=== PATIENT | female | born 1950 | race Caucasian/White ===

== ENCOUNTER → 2016-11-30 | Outpatient (REF) | payer MEDICARE, OTHER ==
[~2016-11-30] MED LIST: /CELE20CA; BONIVA PO; CALCIUM PO; HYDR25TA6 PO; IBUP600T; LIPI10TA PO; RYZOLT; RYZOLT PO; TRAM50TA2 OR; VICO5TAB; VITAMI PO; VITAMIN D50000 UNT PO
[2016-11-30 13:46] LABS: ALBUMIN 3.9 GM/DL (3.2-5.2); ALKALINE PHOSPHATASE 79 U/L (45-117); ALT/SGPT 33 U/L (12-78); ANION GAP 6 MEQ/L (8-16); AST/SGOT 24 U/L (15-37); BILIRUBIN,TOTAL 0.5 MG/DL (0.2-1.0); BLOOD UREA NITROGEN 18 MG/DL (7-18); CALCIUM LEVEL 9.2 MG/DL (8.8-10.2); CARBON DIOXIDE LEVEL 31 MEQ/L (21-32); CHLORIDE LEVEL 103 MEQ/L (98-107); CHOLESTEROL LEVEL 160 MG/DL (<200); CREATININE FOR GFR 0.98 MG/DL (0.55-1.02); GLOMERULAR FILTRATION RATE > 60.0 (>45); GLUCOSE, FASTING 106 MG/DL (80-110); POTASSIUM SERUM 4.5 MEQ/L (3.5-5.1); SODIUM LEVEL 140 MEQ/L (136-145); TOTAL PROTEIN 6.9 GM/DL (6.4-8.2); TRIGLYCERIDES LEVEL 154 MG/DL (<150)
== END ==
LOC: M SFHCADAM 08:27
PROVIDERS: ATTEND Internal Medicine
DX: I10 Essential (primary) hypertension (principal); E78.00 Pure hypercholesterolemia, unspecified

== ENCOUNTER → 2017-02-11 | Outpatient (CLI) | payer MEDICARE, OTHER ==
[~2017-02-11] MED LIST changes: +ATOR1TAB19 PO; +LISINOPRIL-HCTZ PO
--- NOTE | 2017-02-12 09:04 | DEXA ---
AP SPINE L1 - L4 0.991 -1.6 0.0 LT FEMUR TOTAL 0.915 -0.7 0.6 RT FEMUR TOTAL 0.954 -0.4 0.9 TOTAL BODY TOTAL OTHER DUAL FEMUR FRAX* ASSESSMENT Risk factors: Not performed. 10 year probability of fracture Major osteoporotic fracture % Hip fracture % COMMENTS: There is low bone density of the spine and hips. The decreased density of the spine does represent a significant change. The increased density of the left hip does not represent a significant change. The increased density of the right hip does represent a significant change. The density of the spine has increased 4.9% since the initial exam on 2000. The spine density has decreased 8.8% since the most recent exam on 01/09/2011. The density of the left hip has increased 4.1% since the initial exam on 2000. The density of the left hip has increased 1.6% since the most recent exam on 05/2011. The density of the right hip has increased 5.3% since the initial exam on 2000. The density of the right hip has increased 3.2% since the most recent exam on . FOLLOW-UP: Recommendation for the next bone density exam: 2 years. KALEN
== END ==
LOC: M WHC 08:56
PROVIDERS: ATTEND Internal Medicine
DX: Z01.419 Encounter for gynecological examination (general) (routine) without abnormal findings (principal); Z12.31 Encounter for screening mammogram for malignant neoplasm of breast; M81.0 Age-related osteoporosis without current pathological fracture; Z78.0 Asymptomatic menopausal state; Z80.3 Family history of malignant neoplasm of breast; Z92.23 Personal history of estrogen therapy; Z12.12 Encounter for screening for malignant neoplasm of rectum
CPT/HCPCS: 77080; 82270; G0101; G0202

== ENCOUNTER → 2017-02-11 | Outpatient (CLI) | payer MEDICARE, OTHER ==
--- NOTE | 2017-02-11 10:33 | REPMRS ---
Patient History The patient states she had a clinical breast exam in 02/14 Patient is postmenopausal. Family history of prostate cancer in father at age 50 or over and breast cancer in daughter at age 36. Took estrogen for 8 years. Digital Woman Screen Mammo: February 11, 2017 - Exam #: [id number] Bilateral CC and MLO view(s) were taken. Technologist: Maude Mac, Technologist Prior study comparison: February 10, 2016, digital woman screen mammo performed at [facility]. February 09, 2015, digital woman screen mammo performed at [facility]. FINDINGS: There are scattered fibroglandular densities. There has been no change in the appearance of the mammogram from the prior studies. There is a mild amount of residual fibroglandular tissue which is fairly symmetric. There is no interval development of dominant mass, architectural distortion, or clustered microcalcification suggestive of malignancy. ASSESSMENT: BI-RADS/ACR category 1 mammogram. Negative. Recommendation Routine screening mammogram in 1 year (for women over age 40). This mammogram was interpreted with the aid of an FDA-approved computer-aided dectection system. Electronically Signed By: Se Gomez MD 02/11/17 [id number]
== END ==
LOC: M WHC 08:43
PROVIDERS: ATTEND Nurse Practitioner Family
DX: Z12.31 Encounter for screening mammogram for malignant neoplasm of breast (principal); Z78.0 Asymptomatic menopausal state; Z80.3 Family history of malignant neoplasm of breast; Z92.23 Personal history of estrogen therapy

== ENCOUNTER 2017-03-04 18:45 | Emergency (ER) | payer MEDICARE, OTHER ==
[~2017-03-04] VITALS: Ht 157.5 cm; Wt 72.7 kg
[~2017-03-04 18:45] MED LIST changes: -ATOR1TAB19 PO; -LISINOPRIL-HCTZ PO
[2017-03-04] MEDS ORDERED: LISINOPRIL-HCTZ PO (18:55)
[2017-03-04] MEDS ORDERED: ATOR1TAB19 PO (18:55)
[2017-03-04] MEDS ORDERED: LIDOCAINE 2% MDV 20 ML VIAL SC ONE (21:15)
[2017-03-04 21:45] VITALS: BP 159/89
--- NOTE | 2017-03-05 08:02 | REP ---
Clinical: Trauma. Laceration. Technique: AP, lateral views of the left hand. Findings: Osteopenia and diffuse arthritic degenerative changes are appreciated. No acute fracture or dislocation. No subcutaneous emphysema or radiodense foreign body. Impression: Osteopenia and degenerative changes. No acute fracture, subcutaneous emphysema or foreign body identified. Signed by Brandon Moreno MD 03/05/2017 07:53 A
== END 2017-03-04 21:53 | disposition home or self-care (01) ==
LOC: M ED 18:45
DX: S61.012A Laceration without foreign body of left thumb without damage to nail, initial encounter (principal); W25.XXXA Contact with sharp glass, initial encounter; Y92.099 Unspecified place in other non-institutional residence as the place of occurrence of the external cause; Y93.9 Activity, unspecified; Y99.9 Unspecified external cause status; E78.5 Hyperlipidemia, unspecified; I10 Essential (primary) hypertension; M85.842 Other specified disorders of bone density and structure, left hand; Z87.891 Personal history of nicotine dependence; Z79.899 Other long term (current) drug therapy

== ENCOUNTER → 2017-12-16 | Outpatient (REF) | payer MEDICARE, OTHER ==
[2017-12-16 12:45] LABS: HEMATOCRIT 40.4 % (36.0-47.0); HEMOGLOBIN 13.4 g/dl (12.0-15.5); MEAN CORPUSCULAR HEMOGLOBIN 29.1 pg (27.0-33.0); MEAN CORPUSCULAR HGB CONC 33.2 g/dl (32.0-36.5); MEAN CORPUSCULAR VOLUME 87.6 fl (80.0-96.0); PLATELET COUNT, AUTOMATED 219 10^3/uL (150-450); RED BLOOD COUNT 4.61 10^6/uL (4.00-5.40); RED CELL DISTRIBUTION WIDTH 13.1 % (11.5-14.5); WHITE BLOOD COUNT 6.5 10^3/uL (4.0-10.0)
[2017-12-16 13:04] LABS: TOTAL 25(OH) VITAMIN D 37.7 NG/ML (30.0-100.0)
[2017-12-16 13:30] LABS: ALBUMIN 3.6 GM/DL (3.2-5.2); ALBUMIN/GLOBULIN RATIO 1.16 (1.00-1.93); ALKALINE PHOSPHATASE 88 U/L (45-117); ALT/SGPT 32 U/L (12-78); ANION GAP 9 MEQ/L (8-16); AST/SGOT 20 U/L (7-37); BILIRUBIN,TOTAL 0.5 MG/DL (0.2-1.0); BLOOD UREA NITROGEN 18 MG/DL (7-18); CARBON DIOXIDE LEVEL 29 MEQ/L (21-32); CHLORIDE LEVEL 104 MEQ/L (98-107); CHOLESTEROL LEVEL 163 MG/DL (<200); CREATININE FOR GFR 0.96 MG/DL (0.55-1.30); GLOMERULAR FILTRATION RATE > 60.0 (>45); GLUCOSE, FASTING 125 MG/DL (70-100); HDL CHOLESTEROL 50 MG/DL (>40); MAGNESIUM LEVEL 1.7 MG/DL (1.8-2.4); NON-HDL-C 113 MG/DL; SODIUM LEVEL 142 MEQ/L (136-145); TOTAL PROTEIN 6.7 GM/DL (6.4-8.2); TRIGLYCERIDES LEVEL 155 MG/DL (<150)
[2017-12-16 15:32] LABS: MALB URINE SIEMENS 7.8 MG/L; MAU/CREAT RATIO 6.4 MCG/MG (0.0-30.0)
[2017-12-16 17:34] LABS: ESTIMATED AVERAGE GLUCOSE 134 MG/DL (60-110); HEMOGLOBIN A1c 6.3 %
== END ==
LOC: M SFHCADAM 08:21
DX: Z79.899 Other long term (current) drug therapy (principal); I10 Essential (primary) hypertension; R73.01 Impaired fasting glucose; E78.00 Pure hypercholesterolemia, unspecified; R94.6 Abnormal results of thyroid function studies; M81.0 Age-related osteoporosis without current pathological fracture; E55.9 Vitamin D deficiency, unspecified
CPT/HCPCS: 83735

== ENCOUNTER → 2018-02-11 | Outpatient (REF) | payer MEDICARE, OTHER | LOC: M SFHCWAGY 11:35 | DX: Z12.4 Encounter for screening for malignant neoplasm of cervix (principal); N95.8 Other specified menopausal and perimenopausal disorders ==

== ENCOUNTER → 2018-02-11 | Outpatient (CLI) | payer MEDICARE, OTHER | LOC: M WHC 11:17 | DX: Z12.31 Encounter for screening mammogram for malignant neoplasm of breast (principal); Z92.23 Personal history of estrogen therapy; Z80.3 Family history of malignant neoplasm of breast; Z12.4 Encounter for screening for malignant neoplasm of cervix; N95.8 Other specified menopausal and perimenopausal disorders; Z12.12 Encounter for screening for malignant neoplasm of rectum | CPT/HCPCS: 77067; G0123 ==

== ENCOUNTER → 2018-11-06 | Outpatient (REF) | payer MEDICARE, OTHER ==
[~2018-11-06] MED LIST changes: -/CELE20CA; +ATOR1TAB19 PO; +CELE1CAP4; +LISINOPRIL-HCTZ PO
== END ==
LOC: M LAB REF 17:41
PROVIDERS: ATTEND Ophthalmology
DX: D23.112 Other benign neoplasm of skin of right lower eyelid, including canthus (principal)

== ENCOUNTER 2019-01-21 10:23 | Inpatient (IN) | payer MEDICARE, OTHER ==
[~2019-01-21] VITALS: Ht 157.5 cm; Wt 75.8 kg
[2019-01-21] MEDS ORDERED: VITA500045 PO (10:28)
[2019-01-21] MEDS ORDERED: LISI40TA PO (10:28)
[2019-01-21] MEDS ORDERED: CHLO125TA PO (10:28)
[2019-01-21] MEDS ORDERED: ONDANSETRON 4MG/2ML VIAL (J2405) IV ONE ×2 (11:00→13:15)
[2019-01-21] MEDS ORDERED: NS 1,000 ML IV ONE (11:00)
[2019-01-21 11:08] LABS: HEMATOCRIT 45.3 % (36.0-47.0); HEMOGLOBIN 15.2 g/dl (12.0-15.5); MEAN CORPUSCULAR HEMOGLOBIN 30.1 pg (27.0-33.0); MEAN CORPUSCULAR HGB CONC 33.6 g/dl (32.0-36.5); MEAN CORPUSCULAR VOLUME 89.7 fl (80.0-96.0); PLATELET COUNT, AUTOMATED 165 10^3/uL (150-450); RED BLOOD COUNT 5.05 10^6/uL (4.00-5.40); WHITE BLOOD COUNT 3.4 10^3/uL (4.0-10.0)
[2019-01-21 11:39] LABS: CALCIUM LEVEL 8.9 MG/DL (8.8-10.2); CREATININE FOR GFR 1.22 MG/DL (0.55-1.30); GLOMERULAR FILTRATION RATE 46.4 (>39); POTASSIUM SERUM 3.5 MEQ/L (3.5-5.1)
[2019-01-21 11:51] LABS: LYMPHOCYTES 13 % (16-52); MONOCYTES 2 % (0-8); NEUTROPHILS 79 % (35-75)
[2019-01-21 11:53] LABS: PLATELET ESTIMATE NORMAL (NORMAL)
[2019-01-21 11:54] LABS: ANISOCYTOSIS 1+
[2019-01-21] MEDS: MORPHINE 2 MG/ML 1ML SYRINGE (J2270) IV PRN ×2 (13:15→16:03)
[2019-01-21] MEDS: GASTROGRAFIN SOLUTION 30ML PO SCH ×2 (16:22→16:23)
[2019-01-21 17:00] LABS: BILIRUBIN,DIRECT 0.7 MG/DL (0.0-0.2); BILIRUBIN,TOTAL 1.2 MG/DL (0.2-1.0)
[2019-01-21 17:01] LABS: ALBUMIN 3.3 GM/DL (3.2-5.2); TOTAL PROTEIN 6.3 GM/DL (6.4-8.2)
[2019-01-21] MEDS ORDERED: ISOVUE-370 76% 100ML VIAL (Q9967) As Ordered ONE (17:51)
--- NOTE | 2019-01-21 19:01 | REPVR ---
EXAM: CT Abdomen and Pelvis With Contrast EXAM DATE/TIME: 01/21/2019 6:11 PM CLINICAL HISTORY: 68 years old, female; Abdominal pain; Additional info: Abd pain, bandemia TECHNIQUE: Imaging protocol: Axial computed tomography images of the abdomen and pelvis with intravenous contrast. Coronal and sagittal reformatted images were created and reviewed. Radiation optimization: All CT scans at this facility use at least one of these dose optimization techniques: automated exposure control; mA and/or kV adjustment per patient size (includes targeted exams where dose is matched to clinical indication); or iterative reconstruction. Contrast material: ISO 370;Contrast volume: 100 ml;Contrast route: IV; COMPARISON: No relevant prior studies available. FINDINGS: Lungs: Bibasilar atelectasis. Liver: There is a diffuse decrease in hepatic parenchymal density, consistent with fatty infiltration. Small calcified granuloma in hepatic dome. Gallbladder and bile ducts: Small focus of calcification in the gallbladder wall versus adherent calculus. No CT evidence of cholecystitis. Pancreas: Small pancreatic calcifications in the pancreatic head and uncinate process likely related to prior pancreatic inflammation/pancreatitis. Spleen: Normal. No splenomegaly. Adrenals: There is bilateral adrenal hyperplasia. Kidneys and ureters: Normal. No hydronephrosis. Stomach and bowel: Diffusely inflamed colon most pronounced in the left colon with extensive wall thickening and mural stratification extending into the left paracolic gutter, findings consistent with acute colitis. No abscess demonstrated. Appendix: No evidence of appendicitis. Intraperitoneal space: Normal. No free air. No significant fluid collection. Vasculature: The aorta demonstrates mild atherosclerotic calcification. Lymph nodes: Normal. No enlarged lymph nodes. Bladder: Unremarkable as visualized. Reproductive: Unremarkable as visualized. Bones/joints: The spine demonstrates mild degenerative changes. There is a grade 2 spondylolisthesis of L5 on S1 secondary to bilateral spondylolysis. Soft tissues: Unremarkable. IMPRESSION: 1. There is a grade 2 spondylolisthesis of L5 on S1 secondary to bilateral spondylolysis. 2. There is a diffuse decrease in hepatic parenchymal density, consistent with fatty infiltration. 3. Small pancreatic calcifications in the pancreatic head and uncinate process likely related to prior pancreatic inflammation/pancreatitis. 4. There is bilateral adrenal hyperplasia. 5. Diffusely inflamed colon most pronounced in the left colon with extensive wall thickening and mural stratification extending into the left paracolic gutter, findings consistent with acute colitis. No abscess demonstrated. Electronically signed by: Tian Aguirre On 01/21/2019 19:01:06 PM
[2019-01-21] MEDS ORDERED: CALC1TAB63 PO (19:37)
[2019-01-21] MEDS ORDERED: HYDROMORPHONE HCL 0.5 MG/ 0.5 ML SYRINGE (J1170 PER 1) IV PRN (21:30)
[2019-01-21] MEDS ORDERED: HYDROmorphone HCL 2 MG/ML 1ML VIAL (J1170) IV PRN (21:30)
--- NOTE | 2019-01-21 21:51 | HPEPDOC ---
General Date of Admission 01/21/19 Date of Service: Jan 21, 2019 Attending Physician: GLADIS ALMODOVAR MD Chief Complaint The patient is a 68-year-old female admitted with a reason for visit of acute ab dominal pain. Source: Patient, Family Exam Limitations: Clinical conditions Timing/Duration: Day(s) (. 1 day) Severity: Severe Associated Symptoms: Other (, abdominal pain) History of Present Illness 68 years old white female presented with chief complaints of generalized abdominal pain is starting 8 AM, that is sharp, intermittent, nonradiating, not is associated with nausea, vomiting, not relieved with any pain medication. Opposition and not exacerbated by any position are meals. Patient was a diagnosed with acute colitis in ED and will called in to admit renee auguste for further treatment Home Medications Scheduled Atorvastatin Calcium (Atorvastatin Calcium) 10 Mg Tab, 10 MG PO QHS, (Reported) Calcium Carbonate/Vitamin D3 (Calcium 600-Vit D3 400 Tablet) 1 Each Tablet, 1 TAB PO BID, (Reported) Chlorthalidone (Chlorthalidone) 25 Mg Tablet, 12.5 MG PO DAILY, (Reported) Ergocalciferol (Vitamin D2) (Vitamin D2) 50,000 Unit Capsule, 50,000 UNITS PO QMONTH, (Reported) PATIENT TYPICALLY TAKES AT THE BEGINNING OF EACH MONTH Lisinopril (Lisinopril) 40 Mg Tablet, 40 MG PO DAILY, (Reported) Allergies Coded Allergies: No Known Allergies (Unverified , 01/21/19) Past Medical History Medical History Coronary artery disease, hypertension, hyperlipidemia Surgical History Left wrist surgery, Family History Significant Family History: No pertinent family hx Social History * Smoker: Denies Alcohol: Denies Drugs: denies A-FIB/CHADSVASC A-FIB History Current/History of A-Fib/PAF?: No Review of Systems Constitutional: Denies: Chills, Fever, Malaise, Night Sweats, Weakness, Fatigu e, Weight Loss, Lethargy, Other Eyes: Denies: Pain, Vision change, Conjunctivae inflammation, Eyelid inflammation, Redness, Other ENT: Denies: Head Aches, Ear Pain, Dysphagia, Sinus Congestion, Post Nasal Drip, Sore Throat, Epistaxis, Other Symptoms Pulmonary: Denies: Dyspnea, Cough, Pleuritic Chest Pain, Other Symptoms Cardiovascular: Denies: Chest Pain, Palpitations, Orthopnea, Paroxysmal Noc. Dyspnea, Edema, Lt Headedness, Other Symptoms Gastrointestinal: Reports: Abdominal Pain Genitourinary: Denies: Dysuria, Frequency, Incontinence, Hematuria, Retention, Other Symptoms Hematologic: Denies: Bruising, Bleeding Excessively, Petecchia, Purpura, Enlarged Lymph Nodes, Other Hematologic Endocrine: Denies: Polydipsia, Polyphagia, Polyuria, Heat Intolerance, Cold Intolerance, Other Endocrine Sx Musculoskeletal: Denies: Neck Pain, Back Pain, Shoulder Pain, Arm Pain, Hand Pain, Leg Pain, Foot Pain, Joint Pain, Muscle Pain, Spasms, Other Symptoms Neurological: Denies: Weakness, Numbness, Incoordination, Change in speech, Confusion, Seizures, Other Symptoms Psych: Denies: Mood Normal, Anxiety, Depression, Memory Issues, Thoughts of Self Harm, Anger, Thoughts of Harming Other, Other Psych Physical Examination General Exam: Positive: Alert, Cooperative Eye Exam: Positive: Conjunctiva & lids normal ENT Exam: Positive: Atraumatic, Mucous membr. moist/pink Neck Exam: Positive: Supple Chest Exam: Positive: Clear to auscultation, Normal air movement Heart Exam: Positive: Rate Normal, Normal S1, Normal S2 Abdomen Exam: Positive: Soft, Tenderness (, positive follow the abdomen did not elicit rebound as patient is voluntarily guarding) Extremity Exam: Positive: Normal pulses Skin Exam: Positive: Nl turgor and temperature Neuro Exam: Positive: Normal Speech, Cranial Nerves 3-12 NL Psych Exam: Positive: Mental status NL, Anxiety, Oriented x 3 Vital Signs Vital Signs Date Time Temp Pulse Resp B/P (MAP) Pulse Ox O2 Delivery O2 Flow Rate FiO2 01/21/19 20:31 99.0 90 27 129/67 (87) 93 01/21/19 18:45 Room Air Laboratory Data Labs 24H Laboratory Tests 2 01/21/19 10:54: Nucleated Red Blood Cells % (auto) 0.0, Neutrophils 79H, Band Neutrophils 6, Lymphocytes (Manual) 13L, Monocytes (Manual) 2, Platelet Estimate NORMAL, Anisocytosis 1+, Anion Gap 7L, Glomerular Filtration Rate 46.4, Calcium Level 8.9, Aspartate Amino Transf (AST/SGOT) 247H, Alanine Aminotransferase (ALT/SGPT) 134H, Alkaline Phosphatase 140H, Total Bilirubin 1.2H, Direct Bilirubin 0.7H, Total Protein 6.3L, Albumin 3.3, Albumin/Globulin Ratio 1.10, Lipase 197 01/21/19 16:59: Lactic Acid Level 3.3*H 01/21/19 21:35: CBC/BMP Laboratory Tests 01/21/19 10:54 Red Blood Count 5.05, Mean Corpuscular Volume 89.7, Mean Corpuscular Hemoglobin 30.1, Mean Corpuscular Hemoglobin Concent 33.6, Red Cell Distribution Width 12.7 Microbiology Microbiology 01/21/19 Gastrointestinal Tract Panel (PCR) - Final, Complete Problems (1) Nonspecific colitis Status: Acute Problem Text: Admit to monitored bed IV fluid normal saline at 150 mL per hour Dilaudid as per protocol for pain management Flagyl 500 mg IV piggyback every 8 hours Cipro 400 mg IV piggyback every 12 hours Nothing by mouth DVT prophylaxis with Lovenox Adjust the Dilaudid dosage as per clinical response GI if the symptoms do not improve in 24 hours A.m. laboratory work has t been ordered Plan / VTE VTE Prophylaxis Ordered?: Yes GLADIS ALMODOVAR MD Jan 21, 2019 21:51
[2019-01-21] MEDS: NS 1,000 ML IV SCH (23:46)
[2019-01-21] MEDS: ENOXAPARIN 40 MG/0.4 ML SYRINGE (J1650) SC SCH (23:46)
[2019-01-21] MEDS: ONDANSETRON 4MG/2ML VIAL (J2405) IV PRN (23:46)
[2019-01-21] MEDS: metroNIDAZOLE 500 MG in APPROPRIATE DILUENT 1 EA IV SCH (23:47)
[2019-01-21 23:57] VITALS: BP 108/65
[2019-01-22] MEDS: CIPROFLOXACIN 400 MG in APPROPRIATE DILUENT 1 EA IV SCH ×2 (01:34→13:21)
[2019-01-22] MEDS: HYDROMORPHONE HCL 0.5 MG/ 0.5 ML SYRINGE (J1170 PER 1) IV PRN ×2 (01:35→05:34)
[2019-01-22] MEDS: metroNIDAZOLE 500 MG in APPROPRIATE DILUENT 1 EA IV SCH ×3 (05:18→20:54)
[2019-01-22 06:00] VITALS: BP 108/65
[2019-01-22 06:12] LABS: HEMATOCRIT 37.7 % (36.0-47.0); HEMOGLOBIN 12.6 g/dl (12.0-15.5); MEAN CORPUSCULAR HEMOGLOBIN 30.1 pg (27.0-33.0); MEAN CORPUSCULAR HGB CONC 33.4 g/dl (32.0-36.5); MEAN CORPUSCULAR VOLUME 90.2 fl (80.0-96.0); PLATELET COUNT, AUTOMATED 162 10^3/uL (150-450); RED BLOOD COUNT 4.18 10^6/uL (4.00-5.40); WHITE BLOOD COUNT 17.7 10^3/uL (4.0-10.0)
[2019-01-22 06:37] LABS: ALBUMIN 2.6 GM/DL (3.2-5.2); BILIRUBIN,TOTAL 0.7 MG/DL (0.2-1.0); CALCIUM LEVEL 7.5 MG/DL (8.8-10.2); CREATININE FOR GFR 1.06 MG/DL (0.55-1.30); GLOMERULAR FILTRATION RATE 54.6 (>39); POTASSIUM SERUM 3.4 MEQ/L (3.5-5.1); TOTAL PROTEIN 5.9 GM/DL (6.4-8.2)
--- NOTE | 2019-01-22 08:48 | IPNPDOC ---
Date Seen The patient was seen on 01/22/19. Progress Note SUBJECTIVE:Pt said ate kyr[place] bbq which her daughter in law made, but was not rare or had been in the sun. noone else in the family has similar symptoms. overnight, no nausea or vomiting. requesting ice chips. pain has subsided. no diarrhea or constipation. on ivfluids. ct abd: nonspecific colitis. lactic acid pending OBJECTIVE: Physical Examination VITALS: PLS SEE BELOW General Exam: Positive: Alert, Cooperative Eye Exam: Positive: Conjunctiva & lids normal ENT Exam: Positive: Atraumatic, Mucous membr. moist/pink Neck Exam: Positive: Supple Chest Exam: Positive: Clear to auscultation, Normal air movement Heart Exam: Positive: Rate Normal, Normal S1, Normal S2 Abdomen Exam: Positive: Soft, Tenderness (, positive follow the abdomen did not elicit rebound as patient is voluntarily guarding) Extremity Exam: Positive: Normal pulses Skin Exam: Positive: Nl turgor and temperature Neuro Exam: Positive: Normal Speech, Cranial Nerves 3-12 NL Psych Exam: Positive: Mental status NL, Anxiety, Oriented x 3 LABORATORY DATA, IMAGING STUDIES, MICROBIOLOGY: PLS SEE BELOW ASSESSMENT AND PLAN: 68 years old white female presented with chief complaints of generalized abdominal pain is starting 8 AM, that is sharp, intermittent, nonradiating, not is associated with nausea, vomiting, not relieved with any pain medication. Opposition and not exacerbated by any position are meals. Patient was a diagnosed with acute colitis in ED and will called in to admit patient for further treatment. colitis Admit to monitored bed IV fluid normal saline at 150 mL per hour Flagyl 500 mg IV piggyback every 8 hours Cipro 400 mg IV piggyback every 12 hours\ toradol prn dilaudid for severe breakthrough pain po percocet Coronary artery disease, on lisinopril hypertension, on lisinopril hold chlorthalidone until resumes solid diet hyperlipidemia resumed lipitor Plan / VTE VTE Prophylaxis Ordered?: Yes VS, I&O, 24H, Fishbone Vital Signs/I&O Vital Signs Date Time Temp Pulse Resp B/P (MAP) Pulse Ox O2 Delivery O2 Flow Rate FiO2 01/22/19 06:00 97.5 84 18 108/65 (79) 95 2.0 01/21/19 18:45 Room Air I&O- Last 24 Hours up to 6 AM 01/22/19 05:59 Intake Total 1000 ml Output Total 0 ml Balance 1000 ml Laboratory Data 24H LABS Laboratory Tests 2 01/21/19 10:54: Nucleated Red Blood Cells % (auto) 0.0, Neutrophils 79H, Band Neutrophils 6, Lymphocytes (Manual) 13L, Monocytes (Manual) 2, Platelet Estimate NORMAL, Anisocytosis 1+, Anion Gap 7L, Glomerular Filtration Rate 46.4, Calcium Level 8.9, Aspartate Amino Transf (AST/SGOT) 247H, Alanine Aminotransferase (ALT/SGPT) 134H, Alkaline Phosphatase 140H, Total Bilirubin 1.2H, Direct Bilirubin 0.7H, Total Protein 6.3L, Albumin 3.3, Albumin/Globulin Ratio 1.10, Lipase 197 01/21/19 16:59: Lactic Acid Level 3.3*H 01/21/19 21:35: Lactic Acid Followup at 4 Hours 2.6*H 01/22/19 05:46: Nucleated Red Blood Cells % (auto) 0.0, Anion Gap 6L, Glomerular Filtration Rate 54.6, Calcium Level 7.5#L, Aspartate Amino Transf (AST/SGOT) 130H, Alanine Aminotransferase (ALT/SGPT) 178H, Alkaline Phosphatase 100, Total Bilirubin 0.7, Total Protein 5.9L, Albumin 2.6#L, Albumin/Globulin Ratio 0.79L, Blood Urea Nitrogen 17, Creatinine 1.06, Sodium Level 138, Potassium Level 3.4L, Chloride Level 105, Carbon Dioxide Level 27 01/22/19 08:16: CBC/BMP Laboratory Tests 01/21/19 10:54 Red Blood Count 5.05, Mean Corpuscular Volume 89.7, Mean Corpuscular Hemoglobin 30.1, Mean Corpuscular Hemoglobin Concent 33.6, Red Cell Distribution Width 12.7 01/22/19 05:46 Red Blood Count 4.18, Mean Corpuscular Volume 90.2, Mean Corpuscular Hemoglobin 30.1, Mean Corpuscular Hemoglobin Concent 33.4, Red Cell Distribution Width 13.2, Calcium Level 7.5 #L, Aspartate Amino Transf (AST/SGOT) 130 H, Alanine Aminotransferase (ALT/SGPT) 178 H, Alkaline Phosphatase 100, Total Bilirubin 0.7, Total Protein 5.9 L, Albumin 2.6 #L Microbiology Microbiology 01/21/19 Gastrointestinal Tract Panel (PCR) - Final, Complete PAOLO NEIL MD Jan 22, 2019 08:30
[2019-01-22] MEDS: LISINOPRIL 40 MG TAB PO SCH (09:00)
[2019-01-22] MEDS ORDERED: KETOROLAC 30 MG/ML VIAL (J1885) IV SCH (09:00)
[2019-01-22] MEDS ORDERED: POTASSIUM CHLORIDE 10 MEQ SR TABLET PO ONE (09:00)
[2019-01-22] MEDS: NS 1,000 ML IV SCH ×3 (10:50→20:54)
[2019-01-22] MEDS: PERCOCET 5MG/325MG TAB PO PRN ×3 (11:11→19:49)
[2019-01-22] MEDS: KETOROLAC 30 MG/ML VIAL (J1885) IV PRN ×2 (13:55→20:56)
[2019-01-22 14:00] VITALS: BP 116/65
[2019-01-22 14:59] VITALS: BP 116/65
[2019-01-22] MEDS: ENOXAPARIN 40 MG/0.4 ML SYRINGE (J1650) SC SCH (20:53)
[2019-01-22] MEDS: ATORVASTATIN 10 MG TAB PO SCH (20:53)
[2019-01-23] MEDS: NS 1,000 ML IV SCH ×2 (00:45→05:39)
[2019-01-23] MEDS: CIPROFLOXACIN 400 MG in APPROPRIATE DILUENT 1 EA IV SCH ×2 (02:00→15:31)
[2019-01-23] MEDS: PERCOCET 5MG/325MG TAB PO PRN ×3 (02:06→21:15)
[2019-01-23] MEDS: metroNIDAZOLE 500 MG in APPROPRIATE DILUENT 1 EA IV SCH ×3 (05:39→21:16)
[2019-01-23 07:09] VITALS: BP 118/67
[2019-01-23 09:56] VITALS: BP 122/67
[2019-01-23] MEDS: LISINOPRIL 40 MG TAB PO SCH (09:59)
[2019-01-23] MEDS: ONDANSETRON 4MG/2ML VIAL (J2405) IV PRN (10:24)
[2019-01-23 10:40] LABS: HEPATITIS A ANTIBODY IGM NEGATIVE (NEGATIVE); HEPATITIS B CORE ANTIBODY IGM NEGATIVE (NEGATIVE); HEPATITIS B SURFACE ANTIGEN NEGATIVE (NEGATIVE); HEPATITIS C VIRUS ABY INDEX 0.1 INDEX (<0.8)
[2019-01-23 10:47] LABS: BASO % 0.2 % (0.0-1.0); EOS # 0.1 10^3/uL (0.0-0.50); EOS % 0.8 % (0.0-3.0); HEMATOCRIT 36.2 % (36.0-47.0); HEMOGLOBIN 11.8 g/dl (12.0-15.5); LYMPH # 0.8 10^3/uL (1.5-4.5); LYMPH % 6.7 % (24.0-44.0); MEAN CORPUSCULAR HEMOGLOBIN 29.6 pg (27.0-33.0); MEAN CORPUSCULAR HGB CONC 32.6 g/dl (32.0-36.5); MONO # 0.6 10^3/uL (0.0-0.8); MONO % 4.8 % (0.0-5.0); NEUTROPHILS # 10.2 10^3/uL (1.8-7.7); NEUTROPHILS % 86.4 % (36.0-66.0); PLATELET COUNT, AUTOMATED 151 10^3/uL (150-450); RED BLOOD COUNT 3.98 10^6/uL (4.00-5.40); WHITE BLOOD COUNT 11.8 10^3/uL (4.0-10.0)
[2019-01-23 11:15] LABS: ALBUMIN 2.4 GM/DL (3.2-5.2); ALT/SGPT 96 U/L (12-78); BILIRUBIN,TOTAL 0.3 MG/DL (0.2-1.0); BLOOD UREA NITROGEN 12 MG/DL (7-18); CALCIUM LEVEL 7.9 MG/DL (8.8-10.2); CARBON DIOXIDE LEVEL 31 MEQ/L (21-32); CHLORIDE LEVEL 107 MEQ/L (98-107); CREATININE FOR GFR 0.78 MG/DL (0.55-1.30); GLOMERULAR FILTRATION RATE > 60.0 (>39); GLUCOSE, FASTING 112 MG/DL (70-100); LIPASE 176 U/L (73-393); POTASSIUM SERUM 3.5 MEQ/L (3.5-5.1); SODIUM LEVEL 140 MEQ/L (136-145); TOTAL PROTEIN 5.8 GM/DL (6.4-8.2)
--- NOTE | 2019-01-23 12:23 | IPNPDOC ---
Date Seen The patient was seen on 01/23/19. Progress Note SUBJECTIVE: c/o pain when tried diet yesterday mostly in the left lower quadrant without vomiting, but c/o nausea this am. no fever or chills. c/o diarrhea 1 episode watery this am. on iv cipro flagyl. h/o colonic polyps with planned colonoscopy with Dr. River in 2 weeks per the patient as routine surveillance. requested phone calls be made to both Dr. River and Dr. Trever Dickerson, "to keep them in the loop." Despite IVfluids, no c/o sob, PND, or ROGEL. 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 OBJECTIVE: Physical Examination VITALS: PLS SEE BELOW General Exam: Positive: Alert, Cooperative Eye Exam: Positive: Conjunctiva & lids normal ENT Exam: Positive: Atraumatic, Mucous membr. moist/pink Neck Exam: Positive: Supple Chest Exam: Positive: Clear to auscultation, Normal air movement Heart Exam: Positive: Rate Normal, Normal S1, Normal S2 Abdomen Exam: Positive: Soft, LLQ Tenderness (, positive follow the abdomen did not elicit rebound as patient is voluntarily guarding) Extremity Exam: Positive: Normal pulses Skin Exam: Positive: Nl turgor and temperature Neuro Exam: Positive: Normal Speech, Cranial Nerves 3-12 NL Psych Exam: Positive: Mental status NL, Anxiety, Oriented x 3 LABORATORY DATA, IMAGING STUDIES, MICROBIOLOGY: PLS SEE BELOW ASSESSMENT AND PLAN: 68 years old white female presented with chief complaints of generalized abdominal pain is starting 8 AM, that is sharp, intermittent, nonradiating, not is associated with nausea, vomiting, not relieved with any pain medication. Opposition and not exacerbated by any position are meals. Patient was a diagnosed with acute colitis in ED and will called in to admit patient for further treatment. colitis Admit to monitored bed IV fluid normal saline at 150 mL per hour Flagyl 500 mg IV piggyback every 8 hours Cipro 400 mg IV piggyback every 12 hours\\ toradol prn dilaudid for severe breakthrough pain po percocet Coronary artery disease, on lisinopril hypertension, on lisinopril hold chlorthalidone until resumes solid diet hyperlipidemia resumed lipitor Plan / VTE VTE Prophylaxis Ordered?: Yes VS, I&O, 24H, Fishbone Vital Signs/I&O Vital Signs Date Time Temp Pulse Resp B/P (MAP) Pulse Ox O2 Delivery O2 Flow Rate FiO2 01/23/19 11:45 16 01/23/19 09:56 85 122/67 (85) 01/23/19 07:09 97.6 93 01/22/19 14:59 2.0 01/21/19 18:45 Room Air I&O- Last 24 Hours up to 6 AM 01/23/19 06:00 Intake Total 3180 ml Output Total 0 ml Balance 3180 ml Laboratory Data 24H LABS Laboratory Tests 2 01/22/19 19:26: Hepatitis A IgM Antibody NEGATIVE, Hepatitis B Surface Antigen NEGATIVE, Hepat itis B Core IgM Antibody NEGATIVE, Hepatitis C Antibody Index 0.1 01/23/19 10:34: Immature Granulocyte % (Auto) 1.1, White Blood Count 11.8H, Red Blood Count 3.98L, Hemoglobin 11.8L, Hematocrit 36.2, Mean Corpuscular Volume 91.0, Mean Corpuscular Hemoglobin 29.6, Mean Corpuscular Hemoglobin Concent 32.6, Red Cell Distribution Width 13.1, Platelet Count 151, Neutrophils (%) (Auto) 86.4H, Lymphocytes (%) (Auto) 6.7L, Monocytes (%) (Auto) 4.8, Eosinophils (%) (Auto) 0.8, Basophils (%) (Auto) 0.2, Neutrophils # (Auto) 10.2H, Lymphocytes # (Auto) 0.8L, Monocytes # (Auto) 0.6, Eosinophils # (Auto) 0.1, Basophils # (Auto) 0.0, Nucleated Red Blood Cells % (auto) 0.0, Anion Gap 2L, Glomerular Filtration Rate > 60.0, Blood Urea Nitrogen 12, Creatinine 0.78, Sodium Level 140, Potassium Level 3.5, Chloride Level 107, Carbon Dioxide Level 31, Calcium Level 7.9L, Aspartate Amino Transf (AST/SGOT) 49H, Alanine Aminotransferase (ALT/SGPT) 96H, Alkaline Phosphatase 94, Total Bilirubin 0.3#, Total Protein 5.8L, Albumin 2.4L, Albumin/Globulin Ratio 0.71L, Lipase 176 CBC/BMP Laboratory Tests 01/23/19 10:34 Red Blood Count 3.98 L, Mean Corpuscular Volume 91.0, Mean Corpuscular Hemoglobin 29.6, Mean Corpuscular Hemoglobin Concent 32.6, Red Cell Distribution Width 13.1, Neutrophils (%) (Auto) 86.4 H, Lymphocytes (%) (Auto) 6.7 L, Monocytes (%) (Auto) 4.8, Eosinophils (%) (Auto) 0.8, Basophils (%) (Auto) 0.2, Neutrophils # (Auto) 10.2 H, Lymphocytes # (Auto) 0.8 L, Monocytes # (Auto) 0.6, Eosinophils # (Auto) 0.1, Basophils # (Auto) 0.0, Calcium Level 7.9 L, Aspartate Amino Transf (AST/SGOT) 49 H, Alanine Aminotransferase (ALT/SGPT) 96 H, Alkaline Phosphatase 94, Total Bilirubin 0.3 #, Total Protein 5.8 L, Albumin 2.4 L Microbiology Microbiology 01/21/19 Gastrointestinal Tract Panel (PCR) - Final, Complete PAOLO NEIL MD Jan 23, 2019 12:23
[2019-01-23] MEDS ORDERED: GLUCOSE 4 GM CHEW TABLET PO PRN (12:30)
[2019-01-23] MEDS ORDERED: GLUCAGON FOR INJ 1 MG VIAL (J1610) SC PRN (12:30)
[2019-01-23] MEDS ORDERED: DEXTROSE 50% 50 ML SYRINGE IV PRN (12:30)
[2019-01-23] MEDS ORDERED: PROMETHAZINE INJ 25 MG/ML VIAL (J2550) IV SCH (13:00)
[2019-01-23] MEDS: PANTOPRAZOLE 40MG INJ (PROTONIX) (C9113) IV SCH (13:43)
[2019-01-23] MEDS: KCL 40MEQ IN D5/0.45NS 1000ML 1,000 ML IV SCH (13:45)
[2019-01-23 14:00] VITALS: BP 137/80
[2019-01-23] MEDS ORDERED: ONDANSETRON 4MG/2ML VIAL (J2405) IV SCH (16:00)
--- NOTE | 2019-01-23 16:35 | ECGEPIP ---
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 Electronically Signed on 01-23-2019 16:35:38 EDT by Colin Bagley
[2019-01-23] MEDS ORDERED: PROMETHAZINE INJ 25 MG/ML VIAL (J2550) IV PRN (16:45)
[2019-01-23] MEDS: ATORVASTATIN 10 MG TAB PO SCH (21:15)
[2019-01-23] MEDS: ENOXAPARIN 40 MG/0.4 ML SYRINGE (J1650) SC SCH (21:16)
[2019-01-23 22:00] VITALS: BP 142/78
[2019-01-24] MEDS: CIPROFLOXACIN 400 MG in APPROPRIATE DILUENT 1 EA IV SCH ×2 (02:47→13:27)
[2019-01-24] MEDS: metroNIDAZOLE 500 MG in APPROPRIATE DILUENT 1 EA IV SCH ×3 (05:11→22:28)
[2019-01-24 06:00] VITALS: BP 140/77
[2019-01-24] MEDS: KCL 40MEQ IN D5/0.45NS 1000ML 1,000 ML IV SCH (08:19)
[2019-01-24] MEDS: LISINOPRIL 40 MG TAB PO SCH (08:19)
[2019-01-24] MEDS: PANTOPRAZOLE 40MG INJ (PROTONIX) (C9113) IV SCH (08:19)
[2019-01-24] MEDS: PERCOCET 5MG/325MG TAB PO PRN ×2 (08:42→18:33)
[2019-01-24 09:23] LABS: BASO % 0.4 % (0.0-1.0); EOS # 0.2 10^3/uL (0.0-0.50); EOS % 2.6 % (0.0-3.0); HEMATOCRIT 36.8 % (36.0-47.0); HEMOGLOBIN 12.1 g/dl (12.0-15.5); LYMPH # 0.9 10^3/uL (1.5-4.5); LYMPH % 10.6 % (24.0-44.0); MEAN CORPUSCULAR HEMOGLOBIN 29.4 pg (27.0-33.0); MEAN CORPUSCULAR HGB CONC 32.9 g/dl (32.0-36.5); MEAN CORPUSCULAR VOLUME 89.3 fl (80.0-96.0); MONO # 0.4 10^3/uL (0.0-0.8); NEUTROPHILS # 6.9 10^3/uL (1.8-7.7); NEUTROPHILS % 80.7 % (36.0-66.0); PLATELET COUNT, AUTOMATED 168 10^3/uL (150-450); RED BLOOD COUNT 4.12 10^6/uL (4.00-5.40); WHITE BLOOD COUNT 8.5 10^3/uL (4.0-10.0)
[2019-01-24 10:00] LABS: ERYTHROCYTE SEDIMENTATION RATE 46 mm/hr (0-30)
[2019-01-24 10:07] LABS: ALBUMIN 2.4 GM/DL (3.2-5.2); ALT/SGPT 69 U/L (12-78); BILIRUBIN,TOTAL 0.3 MG/DL (0.2-1.0); BLOOD UREA NITROGEN 7 MG/DL (7-18); C REACTIVE PROTEIN QUANTITATIV 7.69 MG/DL (0.00-0.30); CALCIUM LEVEL 7.9 MG/DL (8.8-10.2); CARBON DIOXIDE LEVEL 30 MEQ/L (21-32); CHLORIDE LEVEL 109 MEQ/L (98-107); CREATININE FOR GFR 0.76 MG/DL (0.55-1.30); GLOMERULAR FILTRATION RATE > 60.0 (>39); GLUCOSE, FASTING 127 MG/DL (70-100); POTASSIUM SERUM 3.6 MEQ/L (3.5-5.1); SODIUM LEVEL 142 MEQ/L (136-145); TOTAL PROTEIN 5.3 GM/DL (6.4-8.2)
--- NOTE | 2019-01-24 12:27 | IPNPDOC ---
Date Seen The patient was seen on 01/24/19. Progress Note SUBJECTIVE: improved llq abd pain rated at 3/10 pain scale when supine, acts up a little when she ambulates without radiation to 5/10 on painscale. no appetite, and feeling better than yesterday. more energy today and less fatigued. slept better, no fever. OBJECTIVE: Physical Examination VITALS: PLS SEE BELOW General Exam: Positive: Alert, Cooperative Eye Exam: Positive: Conjunctiva & lids normal ENT Exam: Positive: Atraumatic, Mucous membr. moist/pink Neck Exam: Positive: Supple Chest Exam: Positive: Clear to auscultation, Normal air movement Heart Exam: Positive: Rate Normal, Normal S1, Normal S2 Abdomen Exam: Positive: Soft, LLQ Tenderness (, positive follow the abdomen did not elicit rebound as patient is voluntarily guarding) Extremity Exam: Positive: Normal pulses Skin Exam: Positive: Nl turgor and temperature Neuro Exam: Positive: Normal Speech, Cranial Nerves 3-12 NL Psych Exam: Positive: Mental status NL, Anxiety, Oriented x 3 LABORATORY DATA, IMAGING STUDIES, MICROBIOLOGY: PLS SEE BELOW ASSESSMENT AND PLAN: 68 years old white female presented with chief complaints of generalized abdominal pain is starting 8 AM, that is sharp, intermittent, nonradiating, not is associated with nausea, vomiting, not relieved with any pain medication. Opposition and not exacerbated by any position are meals. Patient was a diagnosed with acute colitis in ED and will called in to admit patient for further treatment. colitis IV fluids Flagyl 500 mg IV piggyback every 8 hours Cipro 400 mg IV piggyback every 12 hours\ toradol prn dilaudid for severe breakthrough pain po percocet Coronary artery disease, on lisinopril hypertension, on lisinopril hold chlorthalidone until resumes solid diet hyperlipidemia resumed lipitor Plan / VTE VTE Prophylaxis Ordered?: Yes VS, I&O, 24H, Fishbone Vital Signs/I&O Vital Signs Date Time Temp Pulse Resp B/P (MAP) Pulse Ox O2 Delivery O2 Flow Rate FiO2 01/24/19 09:12 16 01/24/19 06:00 97.6 84 140/77 (98) 98 01/22/19 14:59 2.0 01/21/19 18:45 Room Air I&O- Last 24 Hours up to 6 AM 01/24/19 06:00 Intake Total 1960 ml Balance 1960 ml Laboratory Data 24H LABS Laboratory Tests 2 01/24/19 09:08: Immature Granulocyte % (Auto) 0.7, White Blood Count 8.5, Red Blood Count 4.12, Hemoglobin 12.1, Hematocrit 36.8, Mean Corpuscular Volume 89.3, Mean Corpuscular Hemoglobin 29.4, Mean Corpuscular Hemoglobin Concent 32.9, Red Cell Distribution Width 12.8, Platelet Count 168, Neutrophils (%) (Auto) 80.7H, Lymphocytes (%) (Auto) 10.6L, Monocytes (%) (Auto) 5.0, Eosinophils (%) (Auto) 2.6, Basophils (%) (Auto) 0.4, Neutrophils # (Auto) 6.9, Lymphocytes # (Auto) 0.9L, Monocytes # (Auto) 0.4, Eosinophils # (Auto) 0.2, Basophils # (Auto) 0.0, Nucleated Red Blood Cells % (auto) 0.0, Erythrocyte Sedimentation Rate 46H, Anion Gap 3L, Glomerular Filtration Rate > 60.0, Blood Urea Nitrogen 7, Creatinine 0.76, Sodium Level 142, Potassium Level 3.6, Chloride Level 109H, Carbon Dioxide Level 30, Calcium Level 7.9L, Aspartate Amino Transf (AST/SGOT) 28, Alanine Aminotransferase (ALT/SGPT) 69, Alkaline Phosphatase 108, Total Bilirubin 0.3, Total Protein 5.3L, Albumin 2.4L, C-Reactive Protein, Quantitative 7.69H, Albumin/Globulin Ratio 0.83L CBC/BMP Laboratory Tests 01/24/19 09:08 Red Blood Count 4.12, Mean Corpuscular Volume 89.3, Mean Corpuscular Hemoglobin 29.4, Mean Corpuscular Hemoglobin Concent 32.9, Red Cell Distribution Width 12.8, Neutrophils (%) (Auto) 80.7 H, Lymphocytes (%) (Auto) 10.6 L, Monocytes (%) (Auto) 5.0, Eosinophils (%) (Auto) 2.6, Basophils (%) (Auto) 0.4, Neutrophils # (Auto) 6.9, Lymphocytes # (Auto) 0.9 L, Monocytes # (Auto) 0.4, Eosinophils # (Auto) 0.2, Basophils # (Auto) 0.0, Calcium Level 7.9 L, Aspartate Amino Transf (AST/SGOT) 28, Alanine Aminotransferase (ALT/SGPT) 69, Alkaline Phosphatase 108, Total Bilirubin 0.3, Total Protein 5.3 L, Albumin 2.4 L Microbiology Microbiology 01/23/19 Gastrointestinal Tract Panel (PCR) - Final, Complete 01/21/19 Gastrointestinal Tract Panel (PCR) - Final, Complete PAOLO NEIL MD Jan 24, 2019 12:27
[2019-01-24 14:00] VITALS: BP 163/84
[2019-01-24] MEDS: ATORVASTATIN 10 MG TAB PO SCH (20:13)
[2019-01-24] MEDS: ENOXAPARIN 40 MG/0.4 ML SYRINGE (J1650) SC SCH (20:13)
[2019-01-24 22:00] VITALS: BP 157/86
[2019-01-25] MEDS: KCL 40MEQ IN D5/0.45NS 1000ML 1,000 ML IV SCH ×3 (00:42→17:50)
[2019-01-25] MEDS: CIPROFLOXACIN 400 MG in APPROPRIATE DILUENT 1 EA IV SCH ×2 (02:13→13:47)
[2019-01-25] MEDS: metroNIDAZOLE 500 MG in APPROPRIATE DILUENT 1 EA IV SCH ×3 (05:11→21:32)
[2019-01-25 06:00] VITALS: BP 149/85
[2019-01-25 06:37] LABS: BASO % 0.3 % (0.0-1.0); EOS # 0.3 10^3/uL (0.0-0.50); EOS % 3.9 % (0.0-3.0); HEMATOCRIT 36.1 % (36.0-47.0); HEMOGLOBIN 12.1 g/dl (12.0-15.5); LYMPH % 13.8 % (24.0-44.0); MEAN CORPUSCULAR HGB CONC 33.5 g/dl (32.0-36.5); MEAN CORPUSCULAR VOLUME 86.6 fl (80.0-96.0); MONO # 0.6 10^3/uL (0.0-0.8); MONO % 8.6 % (0.0-5.0); NEUTROPHILS % 72.8 % (36.0-66.0); PLATELET COUNT, AUTOMATED 194 10^3/uL (150-450); RED BLOOD COUNT 4.17 10^6/uL (4.00-5.40); WHITE BLOOD COUNT 6.9 10^3/uL (4.0-10.0)
[2019-01-25 07:08] LABS: ALBUMIN 2.4 GM/DL (3.2-5.2); ALT/SGPT 59 U/L (12-78); BILIRUBIN,TOTAL 0.2 MG/DL (0.2-1.0); BLOOD UREA NITROGEN 6 MG/DL (7-18); CALCIUM LEVEL 8.5 MG/DL (8.8-10.2); CARBON DIOXIDE LEVEL 29 MEQ/L (21-32); CHLORIDE LEVEL 107 MEQ/L (98-107); GLOMERULAR FILTRATION RATE > 60.0 (>39); GLUCOSE, FASTING 115 MG/DL (70-100); POTASSIUM SERUM 3.7 MEQ/L (3.5-5.1); SODIUM LEVEL 140 MEQ/L (136-145)
[2019-01-25] MEDS ORDERED: LOPERAMIDE 2 MG CAP PO PRN (08:15)
[2019-01-25] MEDS: LACTOBACILLUS ACIDOPHILUS CAP (BACID) PO SCH ×4 (08:26→20:56)
[2019-01-25] MEDS: LISINOPRIL 40 MG TAB PO SCH (08:26)
[2019-01-25] MEDS: PERCOCET 5MG/325MG TAB PO PRN (08:27)
[2019-01-25] MEDS: PANTOPRAZOLE 40MG INJ (PROTONIX) (C9113) IV SCH (08:27)
[2019-01-25 14:00] VITALS: BP 157/87
--- NOTE | 2019-01-25 14:47 | IPNPDOC ---
Date Seen The patient was seen on 01/25/19. Progress Note SUBJECTIVE: Pt still c/o 3 diarrhea episodes with large volume,nonbloody, nonmucusy with abdominal cramping especially in the LLQ. no fever or chils. denies nausea and vomiting. ambulating but will slight llq soreness when she walks around. OBJECTIVE: Physical Examination VITALS: PLS SEE BELOW General Exam: Positive: Alert, Cooperative Eye Exam: Positive: Conjunctiva & lids normal ENT Exam: Positive: Atraumatic, Mucous membr. moist/pink Neck Exam: Positive: Supple Chest Exam: Positive: Clear to auscultation, Normal air movement Heart Exam: Positive: Rate Normal, Normal S1, Normal S2 Abdomen Exam: Positive: Soft, LLQ Tenderness (, positive follow the abdomen did not elicit rebound as patient is voluntarily guarding) Extremity Exam: Positive: Normal pulses Skin Exam: Positive: Nl turgor and temperature Neuro Exam: Positive: Normal Speech, Cranial Nerves 3-12 NL Psych Exam: Positive: Mental status NL, Anxiety, Oriented x 3 LABORATORY DATA, IMAGING STUDIES, MICROBIOLOGY: PLS SEE BELOW ASSESSMENT AND PLAN: 68 years old white female presented with chief complaints of generalized abdominal pain is starting 8 AM, that is sharp, intermittent, nonradiating, not is associated with nausea, vomiting, not relieved with any pain medication. Opposition and not exacerbated by any position are meals. Patient was a diagnosed with acute colitis in ED and will called in to admit patient for further treatment. colitis IV fluids Flagyl 500 mg IV piggyback every 8 hours Cipro 400 mg IV piggyback every 12 hours\ toradol prn dilaudid for severe breakthrough pain po percocet trial of clears and advanced to low residue diet as tolerated Coronary artery disease, on lisinopril hypertension, on lisinopril hold chlorthalidone until resumes solid diet hyperlipidemia resumed lipitor Plan / VTE VTE Prophylaxis Ordered?: Yes disposition: dc plans in am. VS, I&O, 24H, Fishbone Vital Signs/I&O Vital Signs Date Time Temp Pulse Resp B/P (MAP) Pulse Ox O2 Delivery O2 Flow Rate FiO2 01/25/19 14:00 98.3 73 17 157/87 (110) 96 01/22/19 14:59 2.0 01/21/19 18:45 Room Air I&O- Last 24 Hours up to 6 AM 01/25/19 06:00 Intake Total 500 ml Balance 500 ml Laboratory Data 24H LABS Laboratory Tests 2 01/25/19 06:04: Immature Granulocyte % (Auto) 0.6, White Blood Count 6.9, Red Blood Count 4.17, Hemoglobin 12.1, Hematocrit 36.1, Mean Corpuscular Volume 86.6, Mean Corpuscular Hemoglobin 29.0, Mean Corpuscular Hemoglobin Concent 33.5, Red Cell Distribution Width 12.8, Platelet Count 194, Neutrophils (%) (Auto) 72.8H, Lymphocytes (%) (Auto) 13.8L, Monocytes (%) (Auto) 8.6H, Eosinophils (%) (Auto) 3.9H, Basophils (%) (Auto) 0.3, Neutrophils # (Auto) 5.0, Lymphocytes # (Auto) 1.0L, Monocytes # (Auto) 0.6, Eosinophils # (Auto) 0.3, Basophils # (Auto) 0.0, Nucleated Red Blood Cells % (auto) 0.0, Anion Gap 4L, Glomerular Filtration Rate > 60.0, Blood Urea Nitrogen 6L, Creatinine 0.80, Sodium Level 140, Potassium Level 3.7, Chloride Level 107, Carbon Dioxide Level 29, Calcium Level 8.5L, Aspartate Amino Transf (AST/SGOT) 28, Alanine Aminotransferase (ALT/SGPT) 59, Alkaline Phosphatase 113, Total Bilirubin 0.2, Total Protein 6.0L, Albumin 2.4L, Albumin/Globulin Ratio 0.67L CBC/BMP Laboratory Tests 01/25/19 06:04 Red Blood Count 4.17, Mean Corpuscular Volume 86.6, Mean Corpuscular Hemoglobin 29.0, Mean Corpuscular Hemoglobin Concent 33.5, Red Cell Distribution Width 12.8, Neutrophils (%) (Auto) 72.8 H, Lymphocytes (%) (Auto) 13.8 L, Monocytes (%) (Auto) 8.6 H, Eosinophils (%) (Auto) 3.9 H, Basophils (%) (Auto) 0.3, Neutrophils # (Auto) 5.0, Lymphocytes # (Auto) 1.0 L, Monocytes # (Auto) 0.6, Eosinophils # (Auto) 0.3, Basophils # (Auto) 0.0, Calcium Level 8.5 L, Aspartate Amino Transf (AST/SGOT) 28, Alanine Aminotransferase (ALT/SGPT) 59, Alkaline Phosphatase 113, Total Bilirubin 0.2, Total Protein 6.0 L, Albumin 2.4 L Microbiology Microbiology 01/23/19 Gastrointestinal Tract Panel (PCR) - Final, Complete 01/21/19 Gastrointestinal Tract Panel (PCR) - Final, Complete PAOLO NEIL MD Jan 25, 2019 14:47
[2019-01-25] MEDS: ATORVASTATIN 10 MG TAB PO SCH (20:56)
[2019-01-25] MEDS: ENOXAPARIN 40 MG/0.4 ML SYRINGE (J1650) SC SCH (20:57)
[2019-01-25 22:00] VITALS: BP 158/87
[2019-01-26] MEDS: CIPROFLOXACIN 400 MG in APPROPRIATE DILUENT 1 EA IV SCH ×2 (01:16→14:00)
[2019-01-26] MEDS: KCL 40MEQ IN D5/0.45NS 1000ML 1,000 ML IV SCH (01:16)
[2019-01-26] MEDS: metroNIDAZOLE 500 MG in APPROPRIATE DILUENT 1 EA IV SCH ×2 (05:10→14:00)
[2019-01-26 05:24] VITALS: O2SAT 95
[2019-01-26 06:00] VITALS: BP 159/90
[2019-01-26 06:54] LABS: BASO % 0.5 % (0.0-1.0); EOS # 0.2 10^3/uL (0.0-0.50); EOS % 3.8 % (0.0-3.0); HEMATOCRIT 38.3 % (36.0-47.0); HEMOGLOBIN 13.2 g/dl (12.0-15.5); LYMPH # 1.2 10^3/uL (1.5-4.5); LYMPH % 18.8 % (24.0-44.0); MEAN CORPUSCULAR HEMOGLOBIN 30.4 pg (27.0-33.0); MEAN CORPUSCULAR HGB CONC 34.5 g/dl (32.0-36.5); MEAN CORPUSCULAR VOLUME 88.2 fl (80.0-96.0); MONO # 0.8 10^3/uL (0.0-0.8); MONO % 12.7 % (0.0-5.0); NEUTROPHILS % 62.9 % (36.0-66.0); PLATELET COUNT, AUTOMATED 194 10^3/uL (150-450); RED BLOOD COUNT 4.34 10^6/uL (4.00-5.40); WHITE BLOOD COUNT 6.4 10^3/uL (4.0-10.0)
[2019-01-26 07:20] LABS: ALBUMIN 2.6 GM/DL (3.2-5.2); ALT/SGPT 50 U/L (12-78); BILIRUBIN,TOTAL 0.2 MG/DL (0.2-1.0); BLOOD UREA NITROGEN 6 MG/DL (7-18); CALCIUM LEVEL 8.8 MG/DL (8.8-10.2); CARBON DIOXIDE LEVEL 28 MEQ/L (21-32); CHLORIDE LEVEL 108 MEQ/L (98-107); CREATININE FOR GFR 0.78 MG/DL (0.55-1.30); GLOMERULAR FILTRATION RATE > 60.0 (>39); GLUCOSE, FASTING 112 MG/DL (70-100); POTASSIUM SERUM 3.8 MEQ/L (3.5-5.1); SODIUM LEVEL 142 MEQ/L (136-145)
[2019-01-26] MEDS: LACTOBACILLUS ACIDOPHILUS CAP (BACID) PO SCH ×4 (08:26→21:04)
[2019-01-26] MEDS: PANTOPRAZOLE 40MG INJ (PROTONIX) (C9113) IV SCH (08:27)
[2019-01-26] MEDS: LISINOPRIL 40 MG TAB PO SCH (08:27)
[2019-01-26 14:00] VITALS: BP 157/90
[2019-01-26] MEDS ORDERED: CHLORTHALIDONE 12.5MG PER 1/2 TABLET PO ONE (14:30)
--- NOTE | 2019-01-26 15:07 | IPNPDOC ---
Date Seen The patient was seen on 01/26/19. Progress Note SUBJECTIVE: apprehensive about going home soon. stable on clears without worsening abdominal pain. no fever or chils. denies nausea and vomiting. ambulating but will slight llq soreness when she walks around which is tolerable. Pt instructed to slowly advance diet to low residue and may dc home on po abx with outpt [facility]. OBJECTIVE: Physical Examination VITALS: PLS SEE BELOW General Exam: Positive: Alert, Cooperative Eye Exam: Positive: Conjunctiva & lids normal ENT Exam: Positive: Atraumatic, Mucous membr. moist/pink Neck Exam: Positive: Supple Chest Exam: Positive: Clear to auscultation, Normal air movement Heart Exam: Positive: Rate Normal, Normal S1, Normal S2 Abdomen Exam: Positive: Soft, LLQ Tenderness (, positive follow the abdomen did not elicit rebound as patient is voluntarily guarding) Extremity Exam: Positive: Normal pulses Skin Exam: Positive: Nl turgor and temperature Neuro Exam: Positive: Normal Speech, Cranial Nerves 3-12 NL Psych Exam: Positive: Mental status NL, Anxiety, Oriented x 3 LABORATORY DATA, IMAGING STUDIES, MICROBIOLOGY: PLS SEE BELOW ASSESSMENT AND PLAN: 68 years old white female presented with chief complaints of generalized abdominal pain is starting 8 AM, that is sharp, intermittent, nonradiating, not is associated with nausea, vomiting, not relieved with any pain medication. Opposition and not exacerbated by any position are meals. Patient was a diagnosed with acute colitis in ED and will called in to admit patient for further treatment. colitis s/p IV fluids s/p Flagyl 500 mg IV piggyback every 8 hours-changed to po 01/26/19 s/p Cipro 400 mg IV piggyback every 12 hours-changed to po 01/26/19 s/p toradol s/p prn dilaudid for severe breakthrough pain prn po percocet trial of clears and advanced to low residue diet as tolerated Coronary artery disease, on lisinopril hypertension, on lisinopril hold chlorthalidone until resumes solid diet hyperlipidemia resumed lipitor Plan / VTE VTE Prophylaxis Ordered?: Yes disposition: dc plans in am. VS, I&O, 24H, Fishbone Vital Signs/I&O Vital Signs Date Time Temp Pulse Resp B/P (MAP) Pulse Ox O2 Delivery O2 Flow Rate FiO2 01/26/19 14:00 98.3 87 18 157/90 (112) 97 01/26/19 05:24 Room Air 01/25/19 22:00 2.0 I&O- Last 24 Hours up to 6 AM 01/26/19 06:00 Intake Total 1975 ml Output Total 0 ml Balance 1975 ml Laboratory Data 24H LABS Laboratory Tests 2 01/26/19 06:28: Immature Granulocyte % (Auto) 1.3, White Blood Count 6.4, Red Blood Count 4.34, Hemoglobin 13.2, Hematocrit 38.3, Mean Corpuscular Volume 88.2, Mean Corpuscular Hemoglobin 30.4, Mean Corpuscular Hemoglobin Concent 34.5, Red Cell Distribution Width 12.9, Platelet Count 194, Neutrophils (%) (Auto) 62.9, Lymphocytes (%) (Auto) 18.8L, Monocytes (%) (Auto) 12.7H, Eosinophils (%) (Auto) 3.8H, Basophils (%) (Auto) 0.5, Neutrophils # (Auto) 4.0, Lymphocytes # (Auto) 1.2L, Monocytes # (Auto) 0.8, Eosinophils # (Auto) 0.2, Basophils # (Auto) 0.0, Nucleated Red Blood Cells % (auto) 0.0, Anion Gap 6L, Glomerular Filtration Rate > 60.0, Blood Urea Nitrogen 6L, Creatinine 0.78, Sodium Level 142, Potassium Level 3.8, C hloride Level 108H, Carbon Dioxide Level 28, Calcium Level 8.8, Aspartate Amino Transf (AST/SGOT) 30, Alanine Aminotransferase (ALT/SGPT) 50, Alkaline Phosphatase 104, Total Bilirubin 0.2, Total Protein 6.0L, Albumin 2.6L, Albumin/Globulin Ratio 0.76L CBC/BMP Laboratory Tests 01/26/19 06:28 Red Blood Count 4.34, Mean Corpuscular Volume 88.2, Mean Corpuscular Hemoglobin 30.4, Mean Corpuscular Hemoglobin Concent 34.5, Red Cell Distribution Width 12.9, Neutrophils (%) (Auto) 62.9, Lymphocytes (%) (Auto) 18.8 L, Monocytes (%) (Auto) 12.7 H, Eosinophils (%) (Auto) 3.8 H, Basophils (%) (Auto) 0.5, Neutrophils # (Auto) 4.0, Lymphocytes # (Auto) 1.2 L, Monocytes # (Auto) 0.8, E osinophils # (Auto) 0.2, Basophils # (Auto) 0.0, Calcium Level 8.8, Aspartate Amino Transf (AST/SGOT) 30, Alanine Aminotransferase (ALT/SGPT) 50, Alkaline Phosphatase 104, Total Bilirubin 0.2, Total Protein 6.0 L, Albumin 2.6 L Microbiology Microbiology 01/23/19 Gastrointestinal Tract Panel (PCR) - Final, Complete 01/21/19 Gastrointestinal Tract Panel (PCR) - Final, Complete PAOLO NEIL MD Jan 26, 2019 15:07
--- NOTE | 2019-01-26 15:10 | DS.PDOC ---
Discharge Summary General Date of Admission Jan 21, 2019 at 21:19 Date of Discharge January 27, 2019 Discharge Summary DISCHARGE DIAGNOSES: COLITIS HTN CAD DYSLIPIDEMIA OBESITY BMI 30 DISCHARGE MEDICATIONS: PLS SEE BELOW DISCHARGE INSTRUCTIONS: LOW RESIDUE DIET FU W DR SEGURA FOR ROUTINE COLONOSCOPY PREVIOUSLY SCHEDULED MAY DC HOME IF TOLERATING LOW RESIDUE DIET HISTORY OF PRESENTING ILLNESS: 68 years old white female presented with chief complaints of generalized abdominal pain is starting 8 AM, that is sharp, intermittent, nonradiating, not is associated with nausea, vomiting, not relieved with any pain medication. Opposition and not exacerbated by any position are meals. Patient was a diagnosed with acute colitis in ED and will called in to admit patient for further treatment. HOSPITAL COURSE: colitis s/p IV fluids s/p Flagyl 500 mg IV piggyback every 8 hours-changed to po 01/26/19 s/p Cipro 400 mg IV piggyback every 12 hours-changed to po 01/26/19 s/p toradol s/p prn dilaudid for severe breakthrough pain prn po percocet trial of clears and advanced to low residue diet as tolerated Coronary artery disease, on lisinopril hypertension, on lisinopril hold chlorthalidone until resumes solid diet hyperlipidemia resumed lipitor Plan / VTE VTE Prophylaxis Ordered?: Yes disposition: dc plans in am. DISCHARGE PHYSICAL EXAMINATION: VITALS: PLS SEE BELOW General Exam: Positive: Alert, Cooperative Eye Exam: Positive: Conjunctiva & lids normal ENT Exam: Positive: Atraumatic, Mucous membr. moist/pink Neck Exam: Positive: Supple Chest Exam: Positive: Clear to auscultation, Normal air movement Heart Exam: Positive: Rate Normal, Normal S1, Normal S2 Abdomen Exam: Positive: Soft, LLQ Tenderness (, positive follow the abdomen did not elicit rebound as patient is voluntarily guarding) Extremity Exam: Positive: Normal pulses Skin Exam: Positive: Nl turgor and temperature Neuro Exam: Positive: Normal Speech, Cranial Nerves 3-12 NL Psych Exam: Positive: Mental status NL, Anxiety, Oriented x 3 LABORATORY DATA, IMAGING STUDIES, MICROBIOLOGY: PLS SEE BELOW TIME SPENT ON DISCHARGE: 32 MINUTES Vital Signs/I&Os Vital Signs Date Time Temp Pulse Resp B/P (MAP) Pulse Ox O2 Delivery O2 Flow Rate FiO2 01/26/19 14:00 98.3 87 18 157/90 (112) 97 01/26/19 05:24 Room Air 01/25/19 22:00 2.0 I&O- Last 24 Hours up to 6 AM 01/26/19 06:00 Intake Total 1975 ml Output Total 0 ml Balance 1975 ml Laboratory Data Labs 24H Laboratory Tests 2 01/26/19 06:28: Immature Granulocyte % (Auto) 1.3, White Blood Count 6.4, Red Blood Count 4.34, Hemoglobin 13.2, Hematocrit 38.3, Mean Corpuscular Volume 88.2, Mean Corpuscular Hemoglobin 30.4, Mean Corpuscular Hemoglobin Concent 34.5, Red Cell Distribution Width 12.9, Platelet Count 194, Neutrophils (%) (Auto) 62.9, Lymphocytes (%) (Auto) 18.8L, Monocytes (%) (Auto) 12.7H, Eosinophils (%) (Auto) 3.8H, Basophils (%) (Auto) 0.5, Neutrophils # (Auto) 4.0, Lymphocytes # (Auto) 1.2L, Monocytes # (Auto) 0.8, Eosinophils # (Auto) 0.2, Basophils # (Auto) 0.0, Nucleated Red Blood Cells % (auto) 0.0, Anion Gap 6L, Glomerular Filtration Rate > 60.0, Blood Urea Nitrogen 6L, Creatinine 0.78, Sodium Level 142, Potassium Level 3.8, Chloride Level 108H, Carbon Dioxide Level 28, Calcium Level 8.8, Aspartate Amino Transf (AST/SGOT) 30, Alanine Aminotransferase (ALT/SGPT) 50, Alkaline Phosphatase 104, Total Bilirubin 0.2, Total Protein 6.0L, Albumin 2.6L, Albumin/Globulin Ratio 0.76L CBC/BMP Laboratory Tests 01/26/19 06:28 Red Blood Count 4.34, Mean Corpuscular Volume 88.2, Mean Corpuscular Hemoglobin 30.4, Mean Corpuscular Hemoglobin Concent 34.5, Red Cell Distribution Width 12.9, Neutrophils (%) (Auto) 62.9, Lymphocytes (%) (Auto) 18.8 L, Monocytes (%) (Auto) 12.7 H, Eosinophils (%) (Auto) 3.8 H, Basophils (%) (Auto) 0.5, Neutrophils # (Auto) 4.0, Lymphocytes # (Auto) 1.2 L, Monocytes # (Auto) 0.8, Eosinophils # (Auto) 0.2, Basophils # (Auto) 0.0, Calcium Level 8.8, Aspartate Amino Transf (AST/SGOT) 30, Alanine Aminotransferase (ALT/SGPT) 50, Alkaline Phosphatase 104, Total Bilirubin 0.2, Total Protein 6.0 L, Albumin 2.6 L Microbiology Microbiology 01/23/19 Gastrointestinal Tract Panel (PCR) - Final, Complete 01/21/19 Gastrointestinal Tract Panel (PCR) - Final, Complete Discharge Medications Scheduled Atorvastatin Calcium (Atorvastatin Calcium) 10 Mg Tab, 10 MG PO QHS, (Reported) Calcium Carbonate/Vitamin D3 (Calcium 600-Vit D3 400 Tablet) 1 Each Tablet, 1 TAB PO BID, (Reported) Chlorthalidone (Chlorthalidone) 25 Mg Tablet, 12.5 MG PO DAILY, (Reported) Ergocalciferol (Vitamin D2) (Vitamin D2) 50,000 Unit Capsule, 50,000 UNITS PO QMONTH, (Reported) PATIENT TYPICALLY TAKES AT THE BEGINNING OF EACH MONTH Lisinopril (Lisinopril) 40 Mg Tablet, 40 MG PO DAILY, (Reported) Allergies Coded Allergies: No Known Allergies (Unverified , 01/21/19) PAOLO NEIL MD Jan 26, 2019 15:10
[2019-01-26] MEDS: metroNIDAZOLE (FLAGYL) 500 MG TAB PO SCH ×2 (15:43→21:04)
[2019-01-26] MEDS: CIPROFLOXACIN 500 MG TAB PO SCH (18:20)
[2019-01-26] MEDS: ENOXAPARIN 40 MG/0.4 ML SYRINGE (J1650) SC SCH (21:04)
[2019-01-26] MEDS: ATORVASTATIN 10 MG TAB PO SCH (21:04)
[2019-01-26 22:00] VITALS: BP 154/88
[2019-01-27] MEDS: CIPROFLOXACIN 500 MG TAB PO SCH (05:52)
[2019-01-27 05:53] LABS: HEMATOCRIT 39.9 % (36.0-47.0); HEMOGLOBIN 13.3 g/dl (12.0-15.5); MEAN CORPUSCULAR HEMOGLOBIN 28.4 pg (27.0-33.0); MEAN CORPUSCULAR HGB CONC 33.3 g/dl (32.0-36.5); MEAN CORPUSCULAR VOLUME 85.3 fl (80.0-96.0); PLATELET COUNT, AUTOMATED 224 10^3/uL (150-450); RED BLOOD COUNT 4.68 10^6/uL (4.00-5.40); WHITE BLOOD COUNT 6.4 10^3/uL (4.0-10.0)
[2019-01-27 06:00] VITALS: BP 158/93
[2019-01-27 06:21] LABS: ALBUMIN 2.6 GM/DL (3.2-5.2); ALT/SGPT 44 U/L (12-78); BILIRUBIN,TOTAL 0.3 MG/DL (0.2-1.0); BLOOD UREA NITROGEN 9 MG/DL (7-18); CALCIUM LEVEL 8.9 MG/DL (8.8-10.2); CARBON DIOXIDE LEVEL 29 MEQ/L (21-32); CHLORIDE LEVEL 105 MEQ/L (98-107); CREATININE FOR GFR 0.86 MG/DL (0.55-1.30); GLOMERULAR FILTRATION RATE > 60.0 (>39); GLUCOSE, FASTING 94 MG/DL (70-100); POTASSIUM SERUM 3.8 MEQ/L (3.5-5.1); SODIUM LEVEL 140 MEQ/L (136-145); TOTAL PROTEIN 6.2 GM/DL (6.4-8.2)
[2019-01-27 06:22] LABS: ATYPICAL LYMPH 2 % (0-5); EOSINOPHILS 1 % (0-5); LYMPHOCYTES 34 % (16-52); MONOCYTES 5 % (0-8); NEUTROPHILS 58 % (35-75)
[2019-01-27 06:23] LABS: PLATELET ESTIMATE NORMAL (NORMAL)
[2019-01-27] MEDS: metroNIDAZOLE (FLAGYL) 500 MG TAB PO SCH (08:35)
[2019-01-27] MEDS: LISINOPRIL 40 MG TAB PO SCH (08:35)
[2019-01-27] MEDS: LACTOBACILLUS ACIDOPHILUS CAP (BACID) PO SCH ×2 (08:35→12:15)
[2019-01-27] MEDS ORDERED: PANTOPRAZOLE 40MG TAB (PROTONIX) PO SCH (09:00)
[2019-01-27] MEDS ORDERED: CHLORTHALIDONE 12.5MG PER 1/2 TABLET PO SCH (09:00)
[2019-01-27] MEDS ORDERED: FLAG500T PO (12:38)
[2019-01-27] MEDS ORDERED: CIPR-249 PO (12:38)
== END 2019-01-27 13:20 | disposition home or self-care (01) | DRG 392 ==
LOC: M ED 10:23 → M ED INP 21:19 → M MS5PR 23:00
PROVIDERS: ADMIT Internal Medicine; ATTEND General Practice
DX: K52.9 Noninfective gastroenteritis and colitis, unspecified (principal); I10 Essential (primary) hypertension; I25.10 Atherosclerotic heart disease of native coronary artery without angina pectoris; E78.5 Hyperlipidemia, unspecified; E66.9 Obesity, unspecified; Z68.30 Body mass index [BMI] 30.0-30.9, adult; Z79.899 Other long term (current) drug therapy

== ENCOUNTER → 2019-03-09 | Outpatient (REF) | payer MEDICARE, OTHER ==
[~2019-03-09] MED LIST changes: +CALC1TAB63 PO; +CHLO125TA PO; +CIPR-249 PO; +FLAG500T PO; +LISI40TA PO; +VITA500045 PO
[2019-03-09 14:03] LABS: HEMATOCRIT 46.1 % (36.0-47.0); HEMOGLOBIN 14.9 g/dl (12.0-15.5); MEAN CORPUSCULAR HEMOGLOBIN 29.7 pg (27.0-33.0); MEAN CORPUSCULAR HGB CONC 32.3 g/dl (32.0-36.5); PLATELET COUNT, AUTOMATED 257 10^3/uL (150-450); RED BLOOD COUNT 5.01 10^6/uL (4.00-5.40); WHITE BLOOD COUNT 5.9 10^3/uL (4.0-10.0)
[2019-03-09 14:24] LABS: ALBUMIN 4.1 GM/DL (3.2-5.2); BILIRUBIN,TOTAL 0.5 MG/DL (0.2-1.0); CALCIUM LEVEL 9.1 MG/DL (8.8-10.2); CHOLESTEROL RISK RATIO 3.117 (<5); CREATININE FOR GFR 1.09 MG/DL (0.55-1.30); GLOMERULAR FILTRATION RATE 52.8 (>39); MAGNESIUM LEVEL 1.9 MG/DL (1.8-2.4); POTASSIUM SERUM 4.4 MEQ/L (3.5-5.1); THYROID STIMULATING HORMONE 2.42 uIU/ML (0.358-3.740); TOTAL PROTEIN 7.2 GM/DL (6.4-8.2)
[2019-03-09 15:31] LABS: HEMOGLOBIN A1c 6.5 %
== END ==
LOC: M SFHCADAM 09:17
PROVIDERS: ATTEND Internal Medicine
DX: Z86.010 Personal history of colon polyps (principal); I10 Essential (primary) hypertension; R73.01 Impaired fasting glucose; E78.00 Pure hypercholesterolemia, unspecified; R94.6 Abnormal results of thyroid function studies

== ENCOUNTER → 2019-03-20 | Outpatient (CLI) | payer MEDICARE, OTHER ==
[~2019-03-20] MED LIST changes: +medical marijuana INH
--- NOTE | 2019-03-20 11:30 | REP ---
BILATERAL SCREENING DIGITAL MAMMOGRAM WITH 3D TOMOSYNTHESIS: There are no palpable abnormalities or other breast complaints. The the patient states she had a clinical breast examination in March,. The the patient states she performs self-breast examinations 12 times per year. The Tyrer-Cuzick Score is: 9.6% . Comparison is 11/18/2012. There are scattered areas of fibroglandular density. There is no dominant mass, micro calcific cluster or architectural distortion that would indicate malignancy. There are no additional findings on 3D tomosynthesiss. There is no change from the prior study. Impression: BIRADS/ACR category 1 mammogram. Negative. Recommendation: Routine annual screening mammography. This mammogram was interpreted with the aid of a FDA approved computer-aided detection system. A. Negative mammogram reports should not delay biopsy if a dominant or clinically suspicious mass is present. B. Not all breast cancers are identified by mammography or tomosynthesis. C. Adenosis and dense breasts may obscure an underlying neoplasm. Patient letter M1. Electronically Signed by Se Lopez MD 03/20/2019 11:21 A
== END ==
LOC: M WHC 09:27
PROVIDERS: ATTEND Nurse Practitioner Family
DX: Z12.31 Encounter for screening mammogram for malignant neoplasm of breast (principal)
CPT/HCPCS: 77063; 77067; G0463

== ENCOUNTER 2019-04-15 07:45 | Day surgery (SDC) | payer MEDICARE, OTHER ==
[~2019-04-15] VITALS: Ht 157.5 cm; Wt 69.4 kg
[~2019-04-15 07:45] MED LIST changes: +NS 1,000 ML IV ONE
[2019-04-15] MEDS ORDERED: LIDOCAINE 2% INJ 100 MG/5 ML SDV (FOR ANES.) As Ordered ONE (08:50)
[2019-04-15] MEDS ORDERED: PROPOFOL 500 MG/50 ML VIAL As Ordered ONE (08:50)
[2019-04-15] MEDS ORDERED: ePHEDrine SULFATE 25 MG/5 ML(5MG/ML) SYRINGE As Ordered ONE (09:09)
--- NOTE | 2019-04-15 09:14 | ROOR ---
Patient Name: Cathleen Ott Procedure Date: 04/15/2019 8:49 AM Date of : 1950 Age: 68 Room: [facility] Gender: Female Note Status: Finalized Procedure: Total Colonoscopy to Cecum Indications: High risk colon cancer surveillance: Personal history of colonic polyps, Last colonoscopy: 2013 Providers: Josef River MD Referring MD: Trever Dickerson MD Requesting Provider: Medicines: Monitored Anesthesia Care Complications: No immediate complications. Procedure: Pre-Anesthesia Assessment: - The heart rate, respiratory rate, oxygen saturations, blood pressure, adequacy of pulmonary ventilation, and response to care were monitored throughout the procedure. The Colonoscope was introduced through the anus and advanced to the cecum, identified by appendiceal orifice and ileocecal valve. The colonoscopy was performed without difficulty. The patient tolerated the procedure well. The quality of the bowel preparation was excellent. Findings: The perianal and digital rectal examinations were normal. Non-bleeding internal hemorrhoids were found during retroflexion. The hemorrhoids were small and Grade I (internal hemorrhoids that do not prolapse). No other significant abnormalities were identified in a careful examination of the remainder of the colon. The exam was otherwise without abnormality on direct and retroflexion views. Impression: - Non-bleeding internal hemorrhoids. - The examination was otherwise normal on direct and retroflexion views. - No specimens collected. - The exam was otherwise normal to the cecum. Recommendation: - Patient has a contact number available for emergencies. The signs and symptoms of potential delayed complications were discussed with the patient. Return to normal activities tomorrow. Written discharge instructions were provided to the patient. - High fiber diet. - Discharge patient to home. - Continue present medications. - Repeat colonoscopy in 5 years for surveillance. - Return to referring physician. - The findings and recommendations were discussed with the patient's family. Josef River MD Josef River MD 04/15/2019 9:14:10 AM Electronically signed by Josef River MD Number of Addenda: 0 Note Initiated On: 04/15/2019 8:49 AM Estimated Blood Loss: Estimated blood loss: none.
[2019-04-15 09:45] VITALS: BP 111/69
== END 2019-04-15 09:46 | disposition home or self-care (01) ==
LOC: M OPP 07:45
PROVIDERS: ATTEND Internal Medicine Gastroenterology
DX: Z86.010 Personal history of colon polyps (principal); K64.0 First degree hemorrhoids; I10 Essential (primary) hypertension; E78.00 Pure hypercholesterolemia, unspecified; Z87.891 Personal history of nicotine dependence; Z79.899 Other long term (current) drug therapy

== ENCOUNTER → 2020-04-11 | Outpatient (CLI) | payer MEDICARE, OTHER ==
[~2020-04-11] MED LIST changes: -NS 1,000 ML IV ONE
--- NOTE | 2020-04-12 07:49 | REPMRS ---
Patient History The patient states she had a clinical breast exam in 2019. Family history of prostate cancer at age 50 or over in father, breast cancer at age 36 in daughter. Took estrogen for 8 years. Digital Woman Screen Mammo: April 11, 2020 - Exam #: [id number] Bilateral CC and MLO view(s) were taken. Technologist: Janee Miller, Technologist Prior study comparison: March 20, 2019, bilateral digital woman screen mammo performed at [facility]. February 11, 2018, bilateral digital woman screen mammo performed at [facility]. February 11, 2017, digital woman screen mammo performed at [facility]. FINDINGS: There are scattered fibroglandular densities. The Volpara volumetric breast density category is:B. There has been no change in the appearance of the mammogram from the prior studies. There is a mild amount of scattered fibroglandular density which is fairly symmetric. There is no interval development of dominant mass, architectural distortion, or grouped microcalcification suggestive of malignancy. 3-D tomosynthesis shows no additional findings. Assessment: BI-RADS/ACR category 1 mammogram. Negative Mammogram. Recommendation Routine screening mammogram of both breasts in 1 year (for women over age 40). This patient's Lifetime Breast Cancer Risk is estimated at 9.0 %. This mammogram was interpreted with the aid of an FDA-approved computer-aided dectection system. Electronically Signed By: Conor Mayfield MD 04/11/20 [id number]
== END ==
LOC: M WHC 11:41
PROVIDERS: ATTEND Nurse Practitioner Family
DX: Z01.419 Encounter for gynecological examination (general) (routine) without abnormal findings (principal); Z12.31 Encounter for screening mammogram for malignant neoplasm of breast; Z80.42 Family history of malignant neoplasm of prostate; Z80.3 Family history of malignant neoplasm of breast; Z92.23 Personal history of estrogen therapy
CPT/HCPCS: 77063; 77067; G0101

== ENCOUNTER → 2020-06-13 | Outpatient (CLI) | payer SELFPAY | LOC: M LABSMTC 09:49 | PROVIDERS: ATTEND Pediatrics | DX: Z20.828 Contact with and (suspected) exposure to other viral communicable diseases (principal) ==

== ENCOUNTER → 2020-10-05 | Outpatient (REF) | payer MEDICARE, OTHER ==
[~2020-10-05] MED LIST changes: -LISI40TA PO; +LISI40TA4 PO
== END ==
LOC: M LAB REF 11:24
PROVIDERS: ATTEND Internal Medicine Gastroenterology
DX: K59.1 Functional diarrhea (principal); Z86.010 Personal history of colon polyps; R15.9 Full incontinence of feces

== ENCOUNTER → 2020-11-08 | Outpatient (REF) | payer MEDICARE, OTHER ==
[2020-11-08 13:41] LABS: HEMATOCRIT 45.7 % (36.0-47.0); HEMOGLOBIN 14.7 g/dl (12.0-15.5); MEAN CORPUSCULAR HEMOGLOBIN 28.7 pg (27.0-33.0); MEAN CORPUSCULAR HGB CONC 32.2 g/dl (32.0-36.5); MEAN CORPUSCULAR VOLUME 89.3 fl (80.0-96.0); PLATELET COUNT, AUTOMATED 251 10^3/uL (150-450); RED BLOOD COUNT 5.12 10^6/uL (4.00-5.40); WHITE BLOOD COUNT 6.5 10^3/uL (4.0-10.0)
[2020-11-08 14:20] LABS: ALBUMIN 3.9 GM/DL (3.2-5.2); ALT/SGPT 24 U/L (12-78); BILIRUBIN,TOTAL 0.5 MG/DL (0.2-1.0); BLOOD UREA NITROGEN 17 MG/DL (7-18); CALCIUM LEVEL 9.6 MG/DL (8.8-10.2); CARBON DIOXIDE LEVEL 33 MEQ/L (21-32); CHLORIDE LEVEL 102 MEQ/L (98-107); CHOLESTEROL LEVEL 144 MG/DL (<200); CHOLESTEROL RISK RATIO 2.823 (<5); GLOMERULAR FILTRATION RATE > 60.0 (>39); GLUCOSE, FASTING 106 MG/DL (70-100); HDL CHOLESTEROL 51 MG/DL (>40); LDL CHOLESTEROL 64 MG/DL (<100); MAGNESIUM LEVEL 1.9 MG/DL (1.8-2.4); NON-HDL-C 93 MG/DL; POTASSIUM SERUM 4.2 MEQ/L (3.5-5.1); SODIUM LEVEL 138 MEQ/L (136-145); THYROID STIMULATING HORMONE 0.725 uIU/ML (0.358-3.740); TOTAL PROTEIN 6.9 GM/DL (6.4-8.2); TRIGLYCERIDES LEVEL 145 MG/DL (<150)
[2020-11-08 14:22] LABS: CREATININE, URINE 85.4 MG/DL; MALB URINE SIEMENS 8.2 MG/L; MAU/CREAT RATIO 9.6 MCG/MG (0.0-30.0)
== END ==
LOC: M SFHCPLAZ 10:04
PROVIDERS: ATTEND Internal Medicine
DX: R73.01 Impaired fasting glucose (principal); I10 Essential (primary) hypertension; E78.00 Pure hypercholesterolemia, unspecified; R94.6 Abnormal results of thyroid function studies; Z86.010 Personal history of colon polyps
CPT/HCPCS: 36415; 80053; 80061; 82043; 83036; 83735; 84443; 85027; G0463

== ENCOUNTER → 2021-04-26 | Outpatient (CLI) | payer MEDICARE, OTHER ==
--- NOTE | 2021-04-26 16:55 | REPMRS ---
Patient History The patient states she had a clinical breast exam in March 2021. Family history of prostate cancer at age 50 or over in father, breast cancer at age 36 in daughter. Took estrogen for 8 years. Covid vaccine 07/2020 left arm. 08/2020 left arm. Booster in the left arm. Patient states no breast complaints today. Patient has signed MRS History Sheet. Digital Woman Screen Mammo: April 26, 2021 - Exam #: [id number] Bilateral CC and MLO view(s) were taken. Technologist: RT Johnny Prior study comparison: April 11, 2020, bilateral digital woman screen mammo performed at [facility]. March 20, 2019, bilateral digital woman screen mammo performed at [facility]. FINDINGS: There are scattered fibroglandular densities. Screening. Digital screening (2D) mammography was performed bilaterally in the CC and MLO projections. Additionally, breast tomosynthesis (3D mammography) was performed bilaterally in the CC and MLO projections. Todays exam was compared to the prior exam/exams. By history, the patient has no complaints of a palpable breast abnormality or other significant breast complaints. The Volpara volumetric breast density category is B, there are scattered areas of fibroglandular densities. The breasts are unchanged in size and shape. There are no jenna-soft tissue densities or spiculated masses. There is no internal architectural distortion. There are no suspicious jenna-calcific clusters. Skin thickening or nipple retraction is not present. IMPRESSION: BI-RADS Category 2- Benign Findings. There is no evidence of malignant alteration of the breasts. Followup examination recommended in one year. The lifetime Tyrer-Cuzick score is 8.5% This mammogram was read with the assistance of [employer],an FDA approved computer aided detection system for mammography. Negative x-ray reports should not delay surgical consultation if a dominant or clinically suspicious mass is present. Not all breast cancers can be identified by mammography. Therefore, we recommend that you continue to perform regular breast self-examination and physical examination and then promptly contact your physician of any concerns or changes. Adenosis and dense breasts may obscure an underlying neoplasm. No significant changes when compared with prior studies. Assessment: BI-RADS/ACR category 2 mammogram. Benign Findings. Recommendation Routine screening mammogram of both breasts in 1 year. Electronically Signed By: Otoniel Walsh MD 04/26/21 [id number]
== END ==
LOC: M WHC 10:10
PROVIDERS: ATTEND Nurse Practitioner Women's Health
DX: Z12.31 Encounter for screening mammogram for malignant neoplasm of breast (principal); Z80.3 Family history of malignant neoplasm of breast; Z92.23 Personal history of estrogen therapy
CPT/HCPCS: 77063; 77067; G0463

== ENCOUNTER → 2021-11-06 | Outpatient (REF) | payer MEDICARE, OTHER | LOC: M SFHCPLAZ 09:54 | PROVIDERS: ATTEND Internal Medicine | DX: I10 Essential (primary) hypertension (principal); E78.00 Pure hypercholesterolemia, unspecified; R94.6 Abnormal results of thyroid function studies; E55.9 Vitamin D deficiency, unspecified; Z86.010 Personal history of colon polyps ==

== ENCOUNTER → 2021-11-06 | Outpatient (CLI) | payer MEDICARE, OTHER ==
[2021-11-06 13:53] LABS: BASO # 0.1 10^3/uL (0.0-0.2); BASO % 0.9 % (0.0-1.0); EOS # 0.3 10^3/uL (0.0-0.5); EOS % 4.5 % (0.0-3.0); HEMATOCRIT 45.5 % (36.0-47.0); HEMOGLOBIN 14.7 g/dl (12.0-15.5); LYMPH # 1.9 10^3/uL (1.5-5.0); LYMPH % 30.3 % (24.0-44.0); MEAN CORPUSCULAR HEMOGLOBIN 28.9 pg (27.0-33.0); MEAN CORPUSCULAR HGB CONC 32.3 g/dl (32.0-36.5); MEAN CORPUSCULAR VOLUME 89.6 fl (80.0-96.0); MONO # 0.6 10^3/uL (0.0-0.8); MONO % 9.4 % (2.0-8.0); NEUTROPHILS # 3.5 10^3/uL (1.5-8.5); NEUTROPHILS % 54.6 % (36.0-66.0); PLATELET COUNT, AUTOMATED 260 10^3/uL (150-450); RED BLOOD COUNT 5.08 10^6/uL (4.00-5.40); WHITE BLOOD COUNT 6.4 10^3/uL (4.0-10.0)
[2021-11-06 14:21] LABS: HEMOGLOBIN A1c 6.4 %
[2021-11-06 14:39] LABS: BILIRUBIN,TOTAL 0.5 MG/DL (0.2-1.0); CALCIUM LEVEL 9.6 MG/DL (8.8-10.2); CHOLESTEROL RISK RATIO 2.73 (<5); CREATININE FOR GFR 1.04 MG/DL (0.55-1.30); GLOMERULAR FILTRATION RATE 55.5 (>39); MAGNESIUM LEVEL 1.9 MG/DL (1.8-2.4); POTASSIUM SERUM 4.5 MEQ/L (3.5-5.1); THYROID STIMULATING HORMONE 1.86 uIU/ML (0.358-3.740); TOTAL 25(OH) VITAMIN D 33.4 NG/ML (30.0-100.0)
== END ==
LOC: M PLALAB 10:26
PROVIDERS: ATTEND Internal Medicine
DX: Z86.010 Personal history of colon polyps (principal); I10 Essential (primary) hypertension; E78.00 Pure hypercholesterolemia, unspecified; R94.6 Abnormal results of thyroid function studies; E55.9 Vitamin D deficiency, unspecified; R73.01 Impaired fasting glucose

== ENCOUNTER → 2022-05-02 | Outpatient (CLI) | payer MEDICARE, OTHER | LOC: M WHC 10:54 | PROVIDERS: ATTEND Internal Medicine | DX: Z12.31 Encounter for screening mammogram for malignant neoplasm of breast (principal); M81.0 Age-related osteoporosis without current pathological fracture ==

== ENCOUNTER → 2022-05-07 | Outpatient (CLI) | payer MEDICARE, OTHER | LOC: M WHC 10:33 | PROVIDERS: ATTEND Internal Medicine | DX: M81.0 Age-related osteoporosis without current pathological fracture (principal); M85.851 Other specified disorders of bone density and structure, right thigh; M85.852 Other specified disorders of bone density and structure, left thigh ==

== ENCOUNTER → 2022-12-26 | Outpatient (REF) | payer MEDICARE, OTHER ==
[2022-12-26 14:37] LABS: APPEARANCE, URINE CLEAR (CLEAR); BACTERIA, URINE AUTO NEGATIVE (NEGATIVE); BILIRUBIN, URINE AUTO NEGATIVE (NEGATIVE); BLOOD, URINE BLOOD NEGATIVE (NEGATIVE); COLOR, URINE YELLOW (YELLOW); GLUCOSE, URINE (UA) AUTO NEGATIVE (NEGATIVE); KETONE, URINE AUTO NEGATIVE (NEGATIVE); LEUKOCYTE ESTERASE, URINE AUTO NEGATIVE (NEGATIVE); MUCUS, URINE SMALL (NEGATIVE); NITRITE, URINE AUTO NEGATIVE (NEGATIVE); PROTEIN, URINE AUTO NEGATIVE (NEGATIVE); RBC, URINE AUTO 1 /HPF (0-3); SPECIFIC GRAVITY URINE AUTO 1.014 (1.002-1.035); SQUAMOUS EPITHELIAL CELL UR AU 0 /HPF (0-6); UROBILINOGEN, URINE AUTO 0.2 mg/dL (0.0-2.0); WBC, URINE AUTO 2 /HPF (0-3)
== END ==
LOC: M LAB REF 13:02
PROVIDERS: ATTEND Physician Assistant Medical
DX: N39.0 Urinary tract infection, site not specified (principal)

== ENCOUNTER → 2023-09-05 | Outpatient (CLI) | payer MEDICARE, OTHER | LOC: M WUC 11:09 | PROVIDERS: ATTEND Internal Medicine | DX: M25.571 Pain in right ankle and joints of right foot (principal); M25.572 Pain in left ankle and joints of left foot; M79.671 Pain in right foot; M79.672 Pain in left foot; M77.32 Calcaneal spur, left foot; M77.51 Other enthesopathy of right foot and ankle; M19.071 Primary osteoarthritis, right ankle and foot; M19.072 Primary osteoarthritis, left ankle and foot ==

== ENCOUNTER → 2023-12-18 | Outpatient (CLI) | payer MEDICARE, OTHER | LOC: M WHC 10:23 | PROVIDERS: ATTEND Nurse Practitioner Family | DX: Z12.31 Encounter for screening mammogram for malignant neoplasm of breast (principal) ==

== ENCOUNTER 2024-03-30 10:04 | Day surgery (SDC) | payer MEDICARE, OTHER ==
[~2024-03-30] VITALS: Ht 157.5 cm; Wt 66.1 kg
[~2024-03-30 10:04] MED LIST changes: +ERGO500029 PO; +LEXA1TAB PO; +SEMA1PEN2 SC
[2024-03-30] MEDS: NS 1,000 ML IV ONE (10:30)
[2024-03-30] MEDS ORDERED: propofoL 500 MG/50 ML VIAL As Ordered ONE (11:34)
[2024-03-30] MEDS ORDERED: LIDOCAINE 2% 100MG/5ML SDV (FOR ANES.) As Ordered ONE (11:34)
[2024-03-30 11:54] VITALS: TEMP 97.6
[2024-03-30 12:09] VITALS: BP 111/63; O2SAT 94
== END 2024-03-30 12:17 | disposition home or self-care (01) ==
LOC: M OPP 10:04
PROVIDERS: ATTEND Internal Medicine Gastroenterology
DX: Z12.11 Encounter for screening for malignant neoplasm of colon (principal); K64.0 First degree hemorrhoids; Z86.010 Personal history of colon polyps; Z87.19 Personal history of other diseases of the digestive system; E11.9 Type 2 diabetes mellitus without complications; I10 Essential (primary) hypertension; E78.00 Pure hypercholesterolemia, unspecified; Z79.899 Other long term (current) drug therapy; Z79.85 Long-term (current) use of injectable non-insulin antidiabetic drugs

== ENCOUNTER → 2024-05-08 | Outpatient (CLI) | payer MEDICARE, OTHER | LOC: M WHC 05-04 09:54 | PROVIDERS: ATTEND Internal Medicine | DX: M85.89 Other specified disorders of bone density and structure, multiple sites (principal) ==

== ENCOUNTER → 2024-07-16 | Outpatient (CLI) | payer MEDICARE, OTHER | LOC: M RAD 10:26 | PROVIDERS: ATTEND Nurse Practitioner Family | DX: R22.42 Localized swelling, mass and lump, left lower limb (principal) ==

== ENCOUNTER → 2025-03-03 | Outpatient (REF) | payer MEDICARE, OTHER ==
[~2025-03-03] MED LIST changes: +LISI40TA10 PO; -LISI40TA4 PO
== END ==
LOC: M LAB REF 14:26
PROVIDERS: ATTEND Internal Medicine
DX: M54.16 Radiculopathy, lumbar region (principal)